=== PATIENT | female | born 1995 | race Caucasian/White ===

== ENCOUNTER 2019-02-12 10:49 | Outpatient (CLI) | payer MEDICAID ==
[~2019-02-12] VITALS: Ht 175.3 cm; Wt 111.1 kg
[~2019-02-12 10:49] MED LIST: AMOXICILLIN; CYCL10TA9 PO; GUAI10SY4 PO; HYDR-757 PO; HYDR1TAB75 PO; IBP800T PO; METR500T PO; NAPR-243 PO; NAPR250T PO; OXYC-12 PO; Omeprazole PO; PRCD5U PO; PRED20TA PO; PREN1TAB39 PO; Promethazine PO; SULF-222 PO; TRAM50TA2 PO; Zofran ODT SL
[2019-02-12] MEDS ORDERED: PANT40TA2 PO (11:52)
== END 2019-02-12 11:58 | disposition home or self-care (01) ==
LOC: PREOP 10:49
PROVIDERS: ATTEND Surgery
DX: Z01.818 Encounter for other preprocedural examination (principal)

== ENCOUNTER 2019-02-13 10:55 | Day surgery (SDC) | payer MEDICAID ==
[~2019-02-13] VITALS: Ht 175.3 cm; Wt 111.1 kg
[~2019-02-13 10:55] MED LIST changes: +PANT40TA2 PO
--- OUTSIDE RECORDS SUMMARY | 2019-02-13 10:59 | XMS REPORT ---
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
--- OUTSIDE RECORDS SUMMARY | 2019-02-13 10:59 | XMS REPORT | Continuity of Care Document ---
Author Organization Unknown Address Unknown Allergies Active Description Code Type Severity Reaction Onset Reported/Identified Relationship to Patient Clinical Status Yes CODEINE SULFATE UNKNOWN UNKNOWN Yes codeine [id number] Drug Allergy Mild HYPERSENSITIVE, 05/05/2011 Medications There is no data. Problems Date Dx Coded Attending Type Code Diagnosis Diagnosed By 05/23/2010 Ot 465.9 05/23/2010 Ot 786.2 08/07/2010 Ot 478.19 08/07/2010 Ot 786.2 04/07/2011 ARJUN PADILLA, RANDELL V65.11 NEW MOMMY VISIT 05/06/2011 Ot 287.5 THROMBOCYTOPENIA NOS 05/06/2011 Ot 309.0 ADJUSTMENT DISORDER WITH DEPRESSED MOOD 05/06/2011 Ot 648.41 MENTAL DISORDER- DELIVER 05/06/2011 Ot 649.31 COAGULATION DEFECTS COMP PREG/CHILDBIRTH 05/06/2011 Ot 663.31 CORD ENTANGLE NEC-DELIV 05/06/2011 Ot 664.11 DEL W 2 DEG LACERAT- DEL 05/06/2011 Ot V06.4 OYN-MIVJDD-GEODL-RUBELLA 05/06/2011 Ot V27.0 DELIVER-SINGLE LIVEBORN 02/10/2012 Ot 780.52 INSOMNIA, UNSPECIFIED 02/10/2012 Ot 780.59 SLEEP DISTURBANCES NEC 02/10/2012 Ot 784.0 HEADACHE 11/18/2013 ALETHEA SNOW Ot 845.10 SPRAIN OF FOOT NOS 11/18/2013 ALETHEA SNOW Ot 959.7 LOWER LEG INJURY NOS 11/18/2013 ALETHEA SNOW Ot E000.8 OTHER EXTERNAL CAUSE STATUS 11/18/2013 ALETHEA SNOW Ot E001.0 ACTIVITIES INVOLVING WALKING, MARCHING A 11/18/2013 ALETHEA SNOW Ot E849.[address] NEC 11/18/2013 ALETHEA SNOW Ot E883.9 FALL INTO OTHER HOLE 09/21/2014 ALETHEA SNOW Ot 724.2 LUMBAGO 09/21/2014 SONAM MANISHALETHEA Ot 847.0 SPRAIN OF NECK 09/21/2014 SONAM HAMMONDALETHEA Ot E000.8 OTHER EXTERNAL CAUSE STATUS 09/21/2014 ALETHEA SNOW Ot E849.0 ACCIDENT IN HOME 09/21/2014 SONAM HAMMONDALETHEA Ot E927.0 OVEREXERTION FROM SUDDEN STRENUOUS MOVEM 2015 YUKI MARTINEZ SHIV S Ot 780.79 2015 MANISHGITA MARTINEZ SHIV S Ot 787.02 2015 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 Ot 682.5 CELLULITIS OF BUTTOCK 2015 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 Ot 782.2 LOCAL SUPRFICIAL SWELLNG 2015 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 Ot V12.04 PERSONAL HIST OF METHICILLIN RESISTANT S 2015 MANISHGITA DO SHIV S Ot 780.79 2015 YUKI MARTINEZ SHIV S Ot 787.02 01/09/2015 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 Ot 041.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 01/09/2015 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 Ot 682.5 CELLULITIS OF BUTTOCK 03/24/2015 YUKI MARTINEZ SHIV S Ot 780.79 03/24/2015 YUKI MARTINEZ SHIV S Ot 787.02 03/25/2015 YULIANA PADILLA, GABE Monroy Ot 787.01 NAUSEA WITH VOMITING 03/25/2015 YULIANA PADILLA, GABE Monroy Ot 789.09 ABDOMINAL PAIN, OTHER SPECIFIED SITE 03/25/2015 YUKI MARTINEZ SHIV S Ot 780.79 03/25/2015 YUKI MARTINEZ SHIV S Ot 787.02 06/27/2015 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 Ot M54.6 PAIN IN THORACIC SPINE 03/28/2016 YUKI MARTINEZ SHIV S Ot 780.79 OTH MALAISE FATIGUE 03/28/2016 YUKI MARTINEZ SHIV S Ot 787.02 NAUSEA ALONE 03/29/2016 ISAIAH MARS DO Ot R10.13 EPIGASTRIC PAIN 03/30/2016 ISAIAH MARS DO Ot R10.13 EPIGASTRIC PAIN 04/04/2016 W 787.99 OTHER SYMPTOMS INVOLVING DIGESTIVE SYSTEM 04/04/2016 W K21.9 GASTRO-ESOPHAGEAL REFLUX DISEASE WITHOUT ESOPHAGITIS 04/12/2016 ISAIAH MARS DO Ot R10.13 EPIGASTRIC PAIN Procedures Code Description Performed By Performed On 75.69 05/05/2011 Results Test Result Range BMP - 01/01/17 15:14 Anion Gap 13 6-14 BUN 9 mg/dL 5-25 Calcium 9.5 mg/dL 8.3-10.4 Chloride 107 mmol/L 95-114 CO2 27 mEq/L 22-33 Creat 0.90 mg/dL 0.50-1.50 eGFR 78 mL/min/1.73m2 >59 Glucose 91 mg/dL 70-110 Osmo 294 280-295 Potassium 3.5 mmol/L 3.5-5.3 Sodium 143 mmol/L 134-148 Comprehensive Metabolic Panel - 01/02/19 09:34 Albumin 4.5 g/dL 3.6-5.1 ALP 93 U/L 35-130 ALT 47 U/L 6-45 Anion Gap 12 6-14 AST 28 U/L 2-40 BUN 14 mg/dL 5-25 Calcium 9.7 mg/dL 8.3-10.4 Chloride 108 mmol/L 95-114 CO2 22 mEq/L 22-33 Creat 0.88 mg/dL 0.50-1.50 eGFR 78 mL/min/1.73m2 >59 Globulin 2.9 g/dL 2.3-3.5 Glucose 86 mg/dL 70-110 Osmo 285 280-295 Potassium 4.4 mmol/L 3.5-5.3 Sodium 138 mmol/L 134-148 TBil 0.6 mg/dL 0.2-1.2 TP 7.4 g/dL 6.0-8.3 Amylase - 01/02/19 09:34 Amylase 32 U/L 20-100 Lipase - 01/02/19 09:34 Lipase 9 U/L 7-59 Encounters ACCT No. Visit Date/Time Discharge Status Pt. Type Provider Facility Loc./Unit Complaint [id number] 01/02/2019 09:29:00 01/02/2019 23:59:00 DIS Outpatient Shiv Rowland [id number] 01/01/2017 15:11:00 01/01/2017 23:59:00 DIS Outpatient Shiv Rowland [id number] 04/04/2016 10:13:00 Document Registration [id number] 04/07/2011 13:39:00 04/07/2011 23:59:59 CLS Outpatient ARJUN PADILLA, RANDELL [id number] 02/12/2019 10:49:00 02/12/2019 11:58:00 DIS Outpatient ALMA LIN MD [facility] PREOP EGD [id number] 03/28/2016 09:45:00 03/28/2016 23:59:59 CLS Outpatient DEMAR MARS DOTIE [facility] CARD EPIGASTRIC PAIN,POSTPRANDIAL PAIN [id number] 06/27/2015 15:34:00 06/27/2015 17:01:00 DIS Emergency 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 [facility] ER [id number] 03/24/2015 20:35:00 03/25/2015 00:25:00 DIS Emergency YULIANA PADILLA, GABE Monroy [facility] ER [id number] 01/09/2015 18:18:00 01/09/2015 18:39:00 DIS Emergency 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 [facility] ER [id number] 2015 10:25:00 2015 11:24:00 DIS Emergency 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 [facility] ER [id number] 12/25/2014 08:00:00 12/25/2014 23:59:59 CLS Preadmit PAONI DO, SHIV S [facility] CARD [id number] 12/22/2014 11:43:00 12/22/2014 23:59:59 CLS Outpatient PAONI DO, SHIV S [facility] CARD [id number] 09/21/2014 13:26:00 09/21/2014 14:32:00 DIS Emergency ALETHEA SNOW [facility] ER [id number] 11/18/2013 21:43:00 11/18/2013 22:32:00 DIS Emergency ALETHEA SNOW [facility] ER [id number] 02/13/2019 11:30:00 PEN Preadmit ALMA LIN MD [facility] ENDO ABD PAIN/N V/REFLUX [id number] 02/09/2012 21:45:00 Document Registration [id number] 05/04/2011 18:00:00 Document Registration [id number] 08/06/2010 23:16:00 Document Registration [id number] 05/23/2010 17:30:00 Document Registration
[2019-02-13 11:10] VITALS: BP 124/88
[2019-02-13] MEDS ORDERED: NS IV 500 ML 500 ML IV PRN (11:17)
[2019-02-13] MEDS ORDERED: fentaNYL INJECTION 100 MCG/2 ML AMP IVP ONE (11:30)
[2019-02-13] MEDS ORDERED: MIDAZOLAM 2 MG/2 ML (VERSED) VIAL IVP ONE (11:30)
[2019-02-13] MEDS ORDERED: LIDOCAINE JELLY 2% 6 ML SYRINGE MM PRN (11:30)
[2019-02-13] MEDS ORDERED: NS IV 500 ML 500 ML ONE (11:30)
[2019-02-13] MEDS ORDERED: HURRICAINE EXT TUBE (BENZOCAINE) XX PRN (11:30)
--- NOTE | 2019-02-13 12:33 | Progress Note-Pre Operative ---
Pre-Operative Progress Note H&P Reviewed The H&P was reviewed, patient examined and no changes noted. Date Seen by Provider: Feb 13, 2019 Time Seen by Provider: 12:30 Date H&P Reviewed: Feb 13, 2019 Time H&P Reviewed: 12:30 Pre-Operative Diagnosis: Epigastric pain, nausea, vomiting. YOSHI WOLFF APRN Feb 13, 2019 12:33
--- NOTE | 2019-02-13 12:34 | Conscious Sedation/ASA ---
Conscious Sedation Pre-Proced Time 12:30 ASA Score 2 For ASA 3 and 4: Consider anesthesia and medical clearance. Also, for patients with a history of failed moderate sedation consider anesthesia. Airway Lungs Heart ASA score ASA 1: a normal healthy patient ASA 2: a patient with a mild systemic disease (mid diabetes, controlled hypertension, obesity ASA 3: a patient with a severe systemic disease that limits activity (angina, COPD, prior Myocardial infarction) ASA 4: a patient with an incapacitating disease that is a constant threat to life (CHF, renal failure) ASA 5: a moribund patient not expected to survive 24 hrs. (ruptured aneurysm) ASA 6: a declared brain- patient whose organs are being harvested. For emergent operations, add the letter E after the classification Mallampati Classification Grade 2 Sedation Plan Analgesia, Amnesia, Plan communicated to team members, Discussed options with patient/fam, Discussed risks with patient/fam The patient is an appropriate candidate to undergo the planned procedure, sedation, and anesthesia. The patient immediately re-assessed prior to indication. YOSHI WOLFF APRN Feb 13, 2019 12:34
[2019-02-13] MEDS ORDERED: LIDOCAINE JELLY 2% 6 ML SYRINGE ONE (13:23)
[2019-02-13] MEDS ORDERED: fentaNYL INJECTION 100 MCG/2 ML AMP ONE (13:23)
[2019-02-13] MEDS ORDERED: HURRICAINE EXT TUBE (BENZOCAINE) ONE (13:24)
[2019-02-13] MEDS ORDERED: MIDAZOLAM 2 MG/2 ML (VERSED) VIAL ONE ×6 (13:24→14:00)
--- NOTE | 2019-02-13 13:55 | Discharge Inst-Surgical ---
D/C Lap Instructions-DELIA Follow Up Activity as tolerated High Fiber Diet 25g or more per day Avoid Alcohol, Caffeine, Spicy [place] and Acid foods. Drink 64 fluid oz or more of fluids per day. Symptoms to Report: Fever over 101 degree F, Nausea/Vomiting If any problems/questions: Contact your physician or go to Emergency Room ALMA LIN MD Feb 13, 2019 13:55
[2019-02-13] MEDS ORDERED: ONDANSETRON 4 MG/2 ML (SDV) Z0FRAN IVP PRN (14:00)
[2019-02-13] MEDS ORDERED: HYDROcodone/APAP 5 MG/325 MG (LORTAB) TAB PO PRN (14:00)
[2019-02-13] MEDS ORDERED: ACETAMINOPHEN 325 MG TABLET PO PRN (14:00)
[2019-02-13] MEDS ORDERED: morphine INJ 10 MG/ML 1ML (SYR OR VIAL) IVP PRN ×2 (14:00)
[2019-02-13 14:45] VITALS: BP 114/70
[2019-02-13 15:05] VITALS: BP 117/77
--- NOTE | 2019-02-13 15:38 | OPERATIVE REPORT ---
DATE OF SERVICE: 02/13/2019 ATTENDING PRIMARY CARE PHYSICIAN: Dr. Shiv Rowland. PREOPERATIVE DIAGNOSES: Nausea, vomiting, reflux. POSTOPERATIVE DIAGNOSES: Reflux esophagitis stage II, small to moderate size hiatal hernia approximately 2.5 cm in size, mild gastritis. No distal obstructions. PROCEDURE: EGD with biopsy. SURGEON: Alma Lin MD ANESTHESIA: Conscious sedation. ESTIMATED BLOOD LOSS: Minimal. FINDINGS: Reflux esophagitis stage II, small to moderate size hiatal hernia approximately 2.5 cm in size, mild gastritis. No distal obstructions. DISPOSITION: The patient tolerated the procedure well. INDICATIONS: The patient is a 24-year-old female with a two to three month history of reflux type of symptoms as well as nausea and vomiting. She did undergo a laparoscopic cholecystectomy and EGD in 2016 and remembers that she felt better; however, has redeveloped episodes of reflux and nausea and vomiting. She was started on Protonix recently and is unsure if this has helped her symptoms. She also reports that she does have some dysphagia at times and after taking in a food bolus, she may feel substernal pressure sensation for some time and then this would reduce on its own. She does not report any hematemesis nor coffee ground emesis. DESCRIPTION OF PROCEDURE: The patient was brought to the endoscopy suite, laid in the left lateral decubitus position with head slightly elevated. After adequate IV pain and sedative medications and conscious sedation anesthesia, the mouthpiece was applied. Endoscope was placed in the mouth, visualizing the pharynx and hypopharyngeal region. Vocal cords, epiglottis and vallecula identified and appeared to be normal. The endoscope was then gently intubated the esophageal opening, esophagus insufflated. The endoscope was then advanced to the first, second and third portions of the esophagus at the level of the GE junction, a reflux esophagitis stage II identified. There were no ulcers or strictures identified in this region. A biopsy was taken using forceps with visualization of good hemostasis. The endoscope was then advanced into the stomach, endoscope retroflexed, visualizing a small to moderate size hiatal hernia approximately 2.5 cm in size. There was also clinical reflux with continuous regurgitation of air. There was a mild gastritis noted. There were no formal ulcerations, polyps, nor any neoplasms. A biopsy was taken of the antrum to rule out H. pylori with visualization of good hemostasis. The endoscope was then advanced to the pylorus and the first and second portion of the duodenum, which appeared normal with no distal obstructions. The endoscope was then slowly withdrawn while taking a second look and suctioning of residual air with no additional findings. The patient tolerated the procedure well. We will recommend the necessary lifestyle and diet accommodation including any form of regularly scheduled diet and exercise regimen to promote weight loss and maintenance. We will also recommend avoidance of spicy, greasy and acidic foods as well as caffeinated beverages. We will await the biopsy results for the possibility of H. pylori. It appears that the majority of symptoms appear to be secondary to the hiatal hernia. If she continues to be symptomatic, she may benefit from a hiatal hernia repair. However, before proceeding with this, we would get adequate test including esophageal manometry to rule out the esophageal dysmotility disorder. If this is normal, then she may benefit from a hiatal hernia repair as well as an antireflux procedure. Job ID: [id number] DocumentID: [id number] Dictated Date: 02/13/2019 14:26:32 Biology Instructor Date: 02/13/2019 15:37:07 Dictated By: ALMA LIN MD
[2019-02-13 15:40] VITALS: BP 124/71
== END 2019-02-13 14:45 | disposition home or self-care (01) ==
LOC: ENDO 10:55
PROVIDERS: ATTEND Surgery
DX: K21.0 Gastro-esophageal reflux disease with esophagitis (principal); K44.9 Diaphragmatic hernia without obstruction or gangrene; K29.70 Gastritis, unspecified, without bleeding
CPT/HCPCS: 84703

== ENCOUNTER 2019-02-19 18:22 | Emergency (ER) | payer MEDICAID ==
[~2019-02-19] VITALS: Ht 175.3 cm; Wt 111.1 kg
--- OUTSIDE RECORDS SUMMARY | 2019-02-19 18:27 | XMS REPORT | Continuity of Care Document ---
Author Organization Unknown Address Unknown Allergies Active Description Code Type Severity Reaction Onset Reported/Identified Relationship to Patient Clinical Status Yes CODEINE SULFATE UNKNOWN UNKNOWN Yes codeine [id number] Drug Allergy Mild HYPERSENSITIVE, 02/13/2019 Medications There is no data. 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 Ot 682.5 CELLULITIS OF BUTTOCK 2015 GIGI MILES MIX HOUSE OPERATOR Ot 782.2 LOCAL SUPRFICIAL SWELLNG 2015 GIGI MILES MIX HOUSE OPERATOR Ot V12.04 PERSONAL HIST OF METHICILLIN RESISTANT S 2015 MANISHGITA DO SHIV S Ot 780.79 2015 YUKI MARTINEZ SHIV S Ot 787.02 01/09/2015 GIGI MILES MIX HOUSE OPERATOR Ot 041.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 01/09/2015 GIGI MILES MIX HOUSE OPERATOR Ot 682.5 CELLULITIS OF BUTTOCK 03/24/2015 YUKI MARTINEZ SHIV S Ot 780.79 03/24/2015 YUKI MARTINEZ SHIV S Ot 787.02 03/25/2015 YULIANA PADILLA, GABE Monroy Ot 787.01 NAUSEA WITH VOMITING 03/25/2015 YULIANA PADILLA, GABE Monroy Ot 789.09 ABDOMINAL PAIN, OTHER SPECIFIED SITE 03/25/2015 YUKI MARTINEZ SHIV S Ot 780.79 03/25/2015 YUKI MARTINEZ SHIV S Ot 787.02 06/27/2015 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 MIX HOUSE OPERATOR Ot M54.6 PAIN IN THORACIC SPINE 03/28/2016 [...] ISAIAH MARS DO Ot R10.13 EPIGASTRIC PAIN 02/12/2019 ALMA LIN MD, Ot Z01.818 ENCOUNTER FOR OTHER PREPROCEDURAL EXAMIN 02/13/2019 YUKI SHIV Camara Ot 780.79 OTH MALAISE FATIGUE 02/13/2019 SHIV ROWLAND DO Ot 787.02 NAUSEA ALONE 02/13/2019 ISAIAH MARS DO Ot R10.13 EPIGASTRIC PAIN 02/15/2019 ALMA LIN MD, Ot K21.0 GASTRO-ESOPHAGEAL REFLUX DISEASE WITH ES 02/15/2019 ALMA LIN MD, Ot K29.70 GASTRITIS, UNSPECIFIED, WITHOUT BLEEDING 02/15/2019 ALMA LIN MD, Ot K44.9 DIAPHRAGMATIC HERNIA WITHOUT OBSTRUCTION Procedures Code Description Performed By Performed On 75.69 05/05/2011 Results Test Result Range [facility] - 01/01/17 15:14 Anion Gap 13 6-14 [...] Status Pt. Type Provider Facility Loc./Unit Complaint [id number] 01/02/2019 09:29:00 01/02/2019 23:59:00 DIS Outpatient Shiv Rowland [id number] 01/01/2017 15:11:00 01/01/2017 23:59:00 DIS Outpatient Shiv Rowland [id number] 04/04/2016 10:13:00 Document Registration [id number] 04/07/2011 13:39:00 04/07/2011 23:59:59 CLS Outpatient ARJUN PADILLA, RANDELL [id number] 02/13/2019 10:55:00 02/13/2019 14:45:00 DIS Outpatient ALMA LIN MD [facility] ENDO ABD PAIN/N V/REFLUX [id number] 02/12/2019 10:49:00 02/12/2019 11:58:00 DIS Outpatient ALMA LIN MD [facility] PREOP EGD [id number] 03/28/2016 09:45:00 03/28/2016 23:59:59 CLS Outpatient ISAIAH MARS DO [facility] CARD EPIGASTRIC PAIN,POSTPRANDIAL PAIN [id number] 06/27/2015 15:34:00 06/27/2015 17:01:00 DIS Emergency GIGI MILES APRN [facility] ER BACK PAIN [id number] 03/24/2015 20:35:00 03/25/2015 00:25:00 DIS Emergency YULIANA PADILLA, GABE Monroy [facility] ER VOMITING,POSS FEVER [id number] 01/09/2015 18:18:00 01/09/2015 18:39:00 DIS Emergency GIGI MILES APRN [facility] ER WOUND CHECK [id number] 2015 10:25:00 2015 11:24:00 DIS Emergency JDGIGI APRN [facility] ER POSS SPIDER BITE/ABSCESS [id number] 12/25/2014 08:00:00 12/25/2014 23:59:59 CLS Preadmit YUKI SHIV Camara [facility] CARD SEE ORDER [id number] 12/22/2014 11:43:00 12/22/2014 23:59:59 CLS Outpatient SHIV ROWLAND DO [facility] CARD NAUSEA FATIGUE [id number] 09/21/2014 13:26:00 09/21/2014 14:32:00 DIS Emergency ALETHEA SNOW [facility] ER BACK PAIN [id number] 11/18/2013 21:43:00 11/18/2013 22:32:00 DIS Emergency ALETHEA SNOW [facility] ER R FOOT PAIN [id number] 02/09/2012 21:45:00 Document Registration [id number] 05/04/2011 18:00:00 Document Registration [id number] 08/06/2010 23:16:00 Document Registration [id number] 05/23/2010 17:30:00 Document Registration
--- NOTE | 2019-02-19 18:42 | ED Upper Extremity ---
General Chief Complaint: Upper Extremity Stated Complaint: R ARM BUMPS Source: patient, family (mom) Exam Limitations: no limitations History of Present Illness Date Seen by Provider: Feb 19, 2019 Time Seen by Provider: 18:18 Initial Comments The patient presents to ER by private conveyance with mom and chief complaint she has some bumps on her right arm in the antecubital fossa. She does these in the last day and she says they don't itch but they do have a little burning pain to them. She notes that she's been worked up by Dr. Parmar with endoscopy and has recently started clarithromycin and Flagyl as well as pantoprazole for presumably H. pylori disease. She was wondering if that might have anything to do with her antibiotics. She had a endoscopy 2 days ago and they accessed her right antecubital fossa for IV and did place take there. The tape was in the exact distribution of the small row of bumps on her right arm. She's also noticed for the last couple weeks she's had some fleeting small little dark purplish brown non-purpuric dots in small clusters on her back as well as upper extremity is. Today she only has them on her right upper extremity. She says they do not itch or burn. There is no redness or drainage or weeping. She's had no unexpected weight gain or weight loss. She is not having any appetite changes or other pain or discomfort. She had lab work done 2 weeks ago which was normal. She is known to Dr. Rowland. For the last couple days she's also noticed some nonpainful ulceration in her right lower gums and was afraid maybe it was gingivitis. There is no white plaques that she's noted. She is fastidious about brushing her teeth and flossing. Allergies and Home Medications Allergies Coded Allergies: codeine (Verified Adverse Reaction, Mild, HYPERSENSITIVE, HYPERACTIVITY, 02/13/19) PATIENT DENIES ALLERGY TO CODEINE Home Medications Pantoprazole Sodium 40 Mg Tablet., 40 MG PO HS, (Reported) Patient Home Medication List Home Medication List Reviewed: Yes Review of Systems Constitutional: No chills, No diaphoresis EENTM: No ear discharge, No ear pain Respiratory: No short of breath Cardiovascular: No chest pain, No edema Gastrointestinal: No abdominal pain, No constipation, No diarrhea Genitourinary: No discharge, No dysuria Past Fvtqhti-Xyngeg-Nwzihv Hx Patient Social History Alcohol Use: Denies Use Recreational Drug Use: No Smoking Status: Never a Smoker Recent Foreign Travel: No Contact w/Someone Who Travel: No Recent Hopitalizations: No Seasonal Allergies Seasonal Allergies: No Past Medical History Surgeries: Yes Appendectomy, Gallbladder Respiratory: No Cardiac: No Neurological: Yes Headaches /Migraines 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 0.0oz. 111.961486hc; 36.2 BMI Method:Estimated General Appearance: WD/WN, no apparent distress HEENT: PERRL/EOMI, normal ENT inspection, other (gums on the right lower mandible have a white ulceration without any loose plaques) Neck: non-tender, full range of motion Cardiovascular: normal peripheral pulses, regular rate, rhythm Respiratory: no respiratory distress, no accessory muscle use Elbow/Forearm: non-tender, no evidence of injury, Right (small erythematous papules without discharge or erythematous base. Consistent with contact dermatitis.) Wrist: Yes normal inspection, Yes non-tender, Yes no evidence of injury, Yes normal ROM Neurologic/Tendon: normal sensation, normal motor functions, normal tendon functions Neurologic/Psychiatric: no motor/sensory deficits, alert, oriented x 3 Skin: other (on her right bicep anteriorly there are some small less than 1 mm cluster of the faint purplish brown macules sparsely punctated over a patch of about 2 x 3 cm. Non-blanchable) Progress/Results/Core Measures Progress Progress Note : Time: 18:41 Progress Note The faint macules are consistent with a possible minor trauma purpura. We have offered to do some labs to rule out any kind of bleeding disorder or other concern versus letting her follow-up and do these with her primary care doctor and she has declined to do them today. Her contact dermatitis we've encouraged her to use some lotion keep the skin moisturized and it will pass on its own. She may use hydrocortisone cream if she wishes. She does not have any constitutional symptoms of concern to go with these faint minor patches which seem to resolve on their own over a day or 2. She does not seem to be having a oral candidiasis so we'll just put her on some Magic mouthwash and have her reevaluated by primary care or dentist. Departure Impression Primary Impression: Localized macular rash Additional Impressions: Contact dermatitis Qualified Codes: L23.1 - Allergic contact dermatitis due to adhesives Gingivitis, acute Disposition: 01 HOME, SELF-CARE Condition: Stable Departure-Patient Inst. Decision time for Depature: 18:48 Referrals: VANDANA ROWLAND DO (PCP/Family) Primary Care Physician Patient Instructions: Contact Dermatitis (DC), Gingivitis (DC) Add. Discharge Instructions: Keep the skin clean regular soap and water and you can use a gentle, hypoall ergenic lotions or if you choose [id number] hydrocortisone cream for your right elbow once or twice a day as necessary. It will resolve on its own. Use the Magic mouthwash 3 times a day 30 ML's, swish vigorously and spit. Follow-up with Dr. Rowland in the next 1-2 weeks for reevaluation. All discharge instructions reviewed with patient and/or family. Voiced understanding. Scripts Chlorhexidine Gluconate (Chlorhexidine Gluconate) 473 Ml Mouthwash 30 ML MM TID for 5 Days, #473 ML 0 Refills Prov: MARLI BUTTS 02/19/19 Copy Copies To 1: VANDANA ROWLAND TITUS J Feb 19, 2019 18:42
[2019-02-19] MEDS ORDERED: CHLO473M MM (18:51)
[2019-02-19 19:23] VITALS: BP 127/85
== END 2019-02-19 19:23 | disposition home or self-care (01) ==
LOC: EDUNIT# 18:22 → ER 18:23
DX: L25.9 Unspecified contact dermatitis, unspecified cause (principal); K05.00 Acute gingivitis, plaque induced; G43.909 Migraine, unspecified, not intractable, without status migrainosus; K21.9 Gastro-esophageal reflux disease without esophagitis; Z82.49 Family history of ischemic heart disease and other diseases of the circulatory system; Z90.49 Acquired absence of other specified parts of digestive tract; Z88.5 Allergy status to narcotic agent
CPT/HCPCS: 99282

== ENCOUNTER 2019-04-23 18:31 | Emergency (ER) | payer MEDICAID ==
[~2019-04-23] VITALS: Ht 175.3 cm; Wt 111.1 kg
[~2019-04-23 18:31] MED LIST changes: +CHLO473M MM
[2019-04-23] MEDS ORDERED: IBUPROFEN 800 MG (MOTRIN) TAB PO STA (18:42)
[2019-04-23] MEDS ORDERED: AUGMENTIN 875 MG TAB (AMOXICILLIN/CLAVULANATE) PO STA (19:45)
[2019-04-23] MEDS ORDERED: AMOX-358 PO (19:48)
--- NOTE | 2019-04-23 19:48 | ED EENT ---
History of Present Illness General Chief Complaint: Cough/Cold/Flu Symptoms Stated Complaint: SINUS PRESSURE Nursing Triage Note: SINUS PRESSURE AND RIGHT EAR PAIN STARTING LAST NIGHT. HAS NOT TAKEN ANY MEDS FOR RELIEF. History of Present Illness Date Seen by Provider: Apr 23, 2019 Time Seen by Provider: 19:10 Initial Comments 24-year-old female presents with right sided frontal and maxillary sinus tenderness. She states that she originally started symptoms and was having some purulent drainage however this is decreased over the last few days but she's had increased pressure and pain. She routinely gets 2-3 sinus infections each fall. She's never treated for allergies. In addition she is noted right ear pain. Timing/Duration: yesterday Location: facial (right sinuses) Prearrival Treatment: no prearrival treatment Associated Symptoms: facial pain/swelling, malaise, sinus infection Allergies and Home Medications Allergies Coded Allergies: codeine (Verified Adverse Reaction, Mild, HYPERSENSITIVE, HYPERACTIVITY, 02/13/19) PATIENT DENIES ALLERGY TO CODEINE Home Medications Amoxicillin/Potassium Clav 1 Each Tablet, 1 EACH PO BID Prescribed by: LEANN HUNTER on 04/23/191947 Patient Home Medication List Home Medication List Reviewed: Yes Review of Systems Review of Systems Constitutional: no symptoms reported, see HPI Ears: See HPI, Pain Nose: see HPI, congestion Respiratory: no symptoms reported, see HPI All Other Systems Reviewed Negative Unless Noted: Yes Past Cebjzpz-Vaymrf-Gcpewb Hx Past Med/Social Hx: Reviewed Nursing Past Med/Soc Hx Patient Social History Alcohol Use: Occasionally Uses Recreational Drug Use: No Smoking Status: Never a Smoker Recent Foreign Travel: No Contact w/Someone Who Travel: No Recent Infectious Disease Expo: No Recent Hopitalizations: No Seasonal Allergies Seasonal Allergies: No Past Medical History Surgeries: Yes Appendectomy, Gallbladder Respiratory: No Cardiac: No Neurological: Yes Headaches /Migraines 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 0.0oz. 111.685431gs; 36.2 BMI Method:Stated General Appearance: WD/WN, no apparent distress Eyes: bilateral eye normal inspection, bilateral eye PERRL, bilateral eye EOMI Ears: right ear TM dull, right ear other (cloudy effusion); left ear TM normal; bilateral ear auricle normal, bilateral ear canal normal Nose: normal inspection; No discharge Mouth/Throat: normal mouth inspection, pharynx normal; No dental tenderness; other (tenderness to palpation over the right maxillary and frontal sinuses) Neck: non-tender, full range of motion, supple, normal inspection, lymphadenopathy (R) Cardiovascular: normal peripheral pulses, regular rate, rhythm Respiratory: chest non-tender, lungs clear, normal breath sounds Gastrointestinal: normal bowel sounds, non tender, soft Neurologic/Psychiatric: no motor/sensory deficits, alert, normal mood/affect, oriented x 3 Skin: normal color, warm/dry Progress/Results/Core Measures Results/Orders My Orders Orders - LEANN HUNTER Ibuprofen Tablet (Motrin Tablet) (04/23/19 18:42) Amoxicillin/Clavulanate Tablet (Augmenti (04/23/19 19:45) Vital Signs/I&O 04/23/19 04/23/19 18:36 19:59 Temp 100.0 99.1 Pulse 97 97 Resp 16 16 B/P (MAP) 143/100 (114) 143/100 (114) Pulse Ox 99 99 O2 Delivery Room Air Blood Pressure Mean: 114 Departure Impression Primary Impression: Sinusitis Qualified Codes: J01.01 - Acute recurrent maxillary sinusitis Additional Impression: Right otitis media with effusion Disposition: HOME, SELF-CARE Condition: Improved Departure-Patient Inst. Decision time for Depature: 19:30 Referrals: VANDANA MIRZA DO (PCP/Family) Primary Care Physician Patient Instructions: Sinus Headache (DC), Sinusitis, Adult (DC) Add. Discharge Instructions: Take antibiotics as prescribed. Alternate between Tylenol 650 mg and ibuprofen 800 mg every 4 hours for pain or fever. Use an fmri-gkq-uyjqlos nasal spray such as Nasonex or Flonase, 2 sprays in each nare twice daily. Use Leena pot or irrigate sinus with syringe every 4-6 hours. Follow-up with your primary care provider if symptoms are not improving or worsen. Return to emergency department for new, urgent health care needs. All discharge instructions reviewed with patient and/or family. Voiced understanding. Scripts Amoxicillin/Potassium Clav (Augmentin 875-125 Tablet) 1 Each Tablet 1 EACH PO BID, #14 TAB 0 Refills Prov: LEANN HUNTER 04/23/19 LEANN HUNTER Apr 23, 2019 19:48
[2019-04-23 19:59] VITALS: BP 143/100
== END 2019-04-23 19:59 | disposition home or self-care (01) ==
LOC: EDUNIT# 18:31 → ER 18:32
DX: J32.9 Chronic sinusitis, unspecified (principal); H65.91 Unspecified nonsuppurative otitis media, right ear; G43.909 Migraine, unspecified, not intractable, without status migrainosus; K21.9 Gastro-esophageal reflux disease without esophagitis; Z88.5 Allergy status to narcotic agent; Z90.49 Acquired absence of other specified parts of digestive tract
CPT/HCPCS: 99283

== ENCOUNTER 2019-06-20 18:59 | Emergency (ER) | payer MEDICAID ==
[~2019-06-20] VITALS: Ht 175 cm; Wt 104.5 kg
[~2019-06-20 18:59] MED LIST changes: +AMOX-358 PO; -CHLO473M MM; +NFCHLORHGL MM
[2019-06-20] MEDS ORDERED: PANT40TA3 (19:09)
[2019-06-20] MEDS ORDERED: ESCI20TA45 (19:09)
[2019-06-20] MEDS ORDERED: LIDOCAINE 1% INJ 20 ML 20 ML VIAL INJ ONE (19:45)
[2019-06-20] MEDS ORDERED: RX-CLINDAMYCIN 150 MG (CLEOCIN) CAP PPK#4 PO STA (20:04)
[2019-06-20] MEDS ORDERED: HYDR-4226 PO (20:07)
[2019-06-20] MEDS ORDERED: CLIN300C11 PO (20:07)
--- NOTE | 2019-06-20 20:07 | ED Integumentary General ---
General Chief Complaint: Skin/Wound Problems Stated Complaint: LT UNDERARM SWELLING,REDNESS Nursing Triage Note: patient reports swelling under L arm, x 2 days. reports redness started today. attempted to excise it yesterday with minimal drainage. Source: patient Exam Limitations: no limitations History of Present Illness Date Seen by Provider: Jun 20, 2019 Time Seen by Provider: 20:05 Initial Comments To ER swelling to the left axilla getting worse for the past 3 days. Became more red around it today. No fevers or chills. Timing/Duration: just prior to arrival Severity: moderate Location: extremities (left axilla) Associated Symptoms: denies symptoms Allergies and Home Medications Allergies Coded Allergies: codeine (Verified Adverse Reaction, Mild, HYPERSENSITIVE, HYPERACTIVITY, 02/13/19) PATIENT DENIES ALLERGY TO CODEINE Patient Home Medication List Home Medication List Reviewed: Yes Review of Systems Review of Systems Constitutional: see HPI EENTM: see HPI Respiratory: no symptoms reported Cardiovascular: no symptoms reported Genitourinary: no symptoms reported Musculoskeletal: no symptoms reported Skin: see HPI Psychiatric/Neurological: No Symptoms Reported Endocrine: No Symptoms Reported Past Oeyjaag-Hcbodb-Qqkcis Hx Patient Social History Recent Foreign Travel: No Contact w/Someone Who Travel: No Recent Infectious Disease Expo: No Recent Hopitalizations: No Seasonal Allergies Seasonal Allergies: No Past Medical History Surgeries: Yes Appendectomy, Gallbladder Respiratory: No Cardiac: No Neurological: Yes Headaches /Migraines 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 Genitourinary: No Gastrointestinal: Yes (N&V) Gastroesophageal Reflux Musculoskeletal: No Endocrine: No HEENT: No Cancer: No Psychosocial: No Integumentary: No Blood Disorders: No Adverse Reaction/Blood Tranf: No Family Medical History Diabetes, Hypertension, Stroke Physical Exam Vital Signs Vital Signs - First Documented 06/20/19 19:05 Temp 36.7 Pulse 78 Resp 18 B/P (MAP) 127/91 (103) Pulse Ox 100 Capillary Refill : Less Than 3 Seconds General Appearance: WD/WN, no apparent distress HEENT: PERRL/EOMI, normal ENT inspection Neck: non-tender, full range of motion Respiratory: no respiratory distress, no accessory muscle use Gastrointestinal: normal bowel sounds Neurologic/Psychiatric: alert, normal mood/affect, oriented x 3 Skin: other (1 x 3 cm area of induration to the left axilla with about 4 cm to surrounding erythema) Skin Problem Character: abscess Procedures/Interventions I&D : Blade Size: 11 Progress/Results/Core Measures Results/Orders My Orders Orders - GIGI MILES APRN Lidocaine 1% Inj 20 Ml (Xylocaine 1% Inj (06/20/19 19:45) Wound Culture (06/20/19 19:55) Vital Signs/I&O 06/20/19 19:05 Temp 36.7 Pulse 78 Resp 18 B/P (MAP) 127/91 (103) Pulse Ox 100 Blood Pressure Mean: 103 POS Departure Impression Primary Impression: Abscess Disposition: HOME, SELF-CARE Condition: Stable Departure-Patient Inst. Decision time for Depature: 20:06 Referrals: VANDANA MIRZA DO (PCP/Family) Primary Care Physician Patient Instructions: Abscess Incision and Drainage Add. Discharge Instructions: 1. Take medication and antibiotics as directed 2. Return to ER for any concerns 3. All discharge instructions reviewed with patient and/or family. Voiced understanding. Scripts Hydrocodone/Acetaminophen ([place] 5-325 Tablet) 1 Each Tablet 1 TAB PO Q6H for Pain MDD 10 TABS for 7 Days, #10 TAB Prov: GIGI MILES APRN 06/20/19 Clindamycin HCl (Clindamycin HCl) 300 Mg Capsule 300 MG PO TID, #21 CAP Prov: GIGI MILES APRN 06/20/19 GIGI MILES APRN Jun 20, 2019 20:07 POS
[2019-06-20 20:14] VITALS: BP 127/91
[2019-06-20] MEDS ORDERED: HYDROcodone/APAP 5 MG/325 MG (LORTAB) TAB PO ONE (20:15)
--- NOTE | 2019-06-24 20:18 | NUR ---
PT CALLED AT THIS TIME FOR CX RESULTS OF LEFT AXILLA ABSCESS. MANISH ALDANA REVIEWED. PT INFORMED TO CONTINUE CLINDAMYCIN 300MG TID UNTIL COMPLETE AND F/U WITH PCP PER MANISH ALDANA.
--- OUTSIDE RECORDS SUMMARY | 2019-07-14 18:28 | XMS REPORT | Continuity of Care Document ---
Author Organization Unknown POS Address Unknown SP Phone Unavailable SP Allergies Active Description Code Type Severity POS Reaction Onset Reported/Identified POS to Patient Clinical Status POS Yes CODEINE SULFATE U NKNOWN SP UNKNOWN SP Yes codeine [id number] Drug Allergy Mild SP HYPERSENSITIVE, 02/13/2019 SP SP Medications There is no data. Problems Date Dx Coded Attending Type Code POS Diagnosed By POS 05/23/2010 Ot 465.9 SP 05/23/2010 Ot 786.2 SP 08/07/2010 Ot 478.19 SP 08/07/2010 Ot 786.2 SP 04/07/2011 ARJUN PADILLA, RANDELL V65. 11 SP MOMMY VISIT SP 05/06/2011 Ot 287.5 THRO MBOCYTOPENIA SP SP 05/06/2011 Ot 309.0 ADJU STMENT SP WITH DEPRESSED MOOD SP 05/06/2011 Ot 648.41 MEN SOTERO DISORDER- SP SP 05/06/2011 Ot 649.31 COA GULATION SP COMP PREG/CHILDBIRTH SP 05/06/2011 Ot 663.31 COR D ENTANGLE SPDELIV SP 05/06/2011 Ot 664.11 DEL W 2 DEG SPDEL SP 05/06/2011 Ot V06.4 SP SP 05/06/2011 Ot V27.0 DELI ETELVINA-SINGLE SP SP 02/10/2012 Ot 780.52 INS OMNIA, SP SP 02/10/2012 Ot 780.59 SLE EP SP NEC SP 02/10/2012 Ot 784.0 HEAD ACHE SP SP 11/18/2013 ALETHEA SNOW Ot 845.10 SP SPRAIN OF FOOT NOS SP 11/18/2013 ALETHEA SNOW Ot 959.7 SP LOWER LEG INJURY NOS SP 11/18/2013 ALETHEA SNOW Ot E000.8 SP OTHER EXTERNAL CAUSE STATUS SP 11/18/2013 ALETHEA SNOW Ot E001.0 SP ACTIVITIES INVOLVING WALKING, MARCHING A SP 11/18/2013 ALETHEA SNOW Ot E849.[address] NEC SP 11/18/2013 SONAM HAMMOND ALETHEA L Ot E883.9 SP FALL INTO OTHER HOLE SP 09/21/2014 SONAM HAMMOND ALETHEA L Ot 724.2 SP LUMBAGO SP 09/21/2014 ALETHEA SNOW Ot 847.0 SP SPRAIN OF NECK SP 09/21/2014 ALETHEA SNOW Ot E000.8 SP OTHER EXTERNAL CAUSE STATUS SP 09/21/2014 ALETHEA SNOW Ot E849.0 SP ACCIDENT IN HOME SP 09/21/2014 ALETHEA SNOW Ot E927.0 SP OVEREXERTION FROM SUDDEN STRENUOUS MOVEM SP 2015 SHIV ROWLAND DO Ot 780.79 SP SP 2015 PASHIV PELAYO DO Ot 787.02 SP SP 2015 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 Ot 682 .5 SP OF BUTTOCK SP 2015 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 Ot 782 .2 SP SUPRFICIAL SWELLNG SP 2015 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 Ot V12.04 SP PERSONAL HIST OF METHICILLIN RESISTANT S SP 2015 PAONI DOSHIV Ot 780.79 SP SP 2015 PASHIV PELAYO DO Ot 787.02 SP SP 01/09/2015 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 Ot 041.12 SP METHICILLIN RESISTANT STAPHYLOCOCCUS AUR SP 01/09/2015 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 Ot 682 .5 SP OF BUTTOCK SP 03/24/2015 PAGITA DOSHIV Ot 780.79 SP SP 03/24/2015 PAONI DOSHIV S Ot 787.02 SP SP 03/25/2015 YULIANA PADILLA, GABE Monroy Ot 787.01 SP NAUSEA WITH VOMITING SP 03/25/2015 YULIANA PADILLA, GABE Monroy Ot 789.09 SP ABDOMINAL PAIN, OTHER SPECIFIED SITE SP 03/25/2015 PASHIV PELAYO DO Ot 780.79 SP SP 03/25/2015 PASHIV PELAYO DO S Ot 787.02 SP SP 06/27/2015 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 Ot M54 .6 SP IN THORACIC SPINE SP 03/28/2016 PASHIV PELAYO DO Ot 780.79 SP MALAISE FATIGUE SP 03/28/2016 [facility] MART[facility] Ot 787.02 SP ALONE SP 03/29/2016 JERAD ISAIAH MARTINEZ Ot R10.13 SP EPIGASTRIC PAIN SP 03/30/2016 JERAD DOISAIAH Ot R10.13 SP EPIGASTRIC PAIN SP 04/04/2016 W 787.99 OTH ER SYMPTOMS SP DIGESTIVE SYSTEM SP 04/04/2016 W 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 SP 04/12/2016 JERAD DOISAIAH Ot R10.13 SP EPIGASTRIC PAIN SP 12/05/2017 W 465.9 ACUT E UPPER SP INFECTIONS OF UNSPECIFIED SITE SP 12/05/2017 W J06.9 ACUT E UPPER SP INFECTION, UNSPECIFIED SP 01/02/2019 W 787.0 NAUS EA AND VOMITING SP SP 01/02/2019 W R11.2 NAUS EA WITH SP UNSPECIFIED SP 02/12/2019 ALMA LIN MD Ot Z01.81 8 SP FOR OTHER PREPROCEDURAL EXAMIN SP 02/13/2019 YUKI MARTINEZ SHIV Camara Ot 780.79 SP MALAISE FATIGUE SP 02/13/2019 [facility] SHIV Camara Ot 787.02 SP ALONE SP 02/13/2019 JERAD ISAIAH MARTINEZ Ot R10.13 SP EPIGASTRIC PAIN SP 02/13/2019 ALMA LIN MD Ot K21.0 SPESOPHAGEAL REFLUX DISEASE WITH ES SP 02/13/2019 ALMA LIN MD Ot K29.70 SP UNSPECIFIED, WITHOUT BLEEDING SP 02/13/2019 ALMA ILN MD Ot K44.9 SP HERNIA WITHOUT OBSTRUCTION SP 02/15/2019 ALMA LIN MD Ot K21.0 SPESOPHAGEAL REFLUX DISEASE WITH ES SP 02/15/2019 ALMA LIN MD Ot K29.70 SP UNSPECIFIED, WITHOUT BLEEDING SP 02/15/2019 ALMA LIN MD Ot K44.9 SP HERNIA WITHOUT OBSTRUCTION SP 02/19/2019 YUKI SHIV Camara Ot 780.79 SP MALAISE FATIGUE SP 02/19/2019 YUKI SHIV Camara Ot 787.02 SP ALONE SP 02/19/2019 JERAD ISAIAH MARTINEZ Ot R10.13 SP EPIGASTRIC PAIN SP 02/19/2019 MARLI BUTTS MD Ot G43.909 SP MIGRAINE, UNSP, NOT INTRACTABLE, WITHOUT SP 02/19/2019 MARLI BUTTS MD Ot K05. 00 SP GINGIVITIS, PLAQUE INDUCED SP 02/19/2019 MARLI BUTTS MD Ot K21. 9 SPESOPHAGEAL REFLUX DISEASE WITHOUT SP 02/19/2019 MARLI BUTTS MD Ot L25. 9 SP CONTACT DERMATITIS, UNSPECIF SP 02/19/2019 MARLI BUTTS MD Ot R22. 31 SP SWELLING, MASS AND LUMP, RIGHT SP 02/19/2019 MARLI BUTTS MD Ot Z82. 49 SP HX OF ISCHEM HEART DIS AND OTH DI SP 02/19/2019 MARLI BUTTS MD Ot Z88. 5 SP STATUS TO NARCOTIC AGENT STATUS SP 02/19/2019 MARLI BUTTS MD Ot Z90. 49 SP ABSENCE OF OTHER SPECIFIED PART SP 02/19/2019 SHIV ROWLAND DO S Ot 780.79 SP MALAISE FATIGUE SP 02/19/2019 SHIV ROWLAND DO S Ot 787.02 SP ALONE SP 02/19/2019 [facility] ISAIAH MARTINEZ Ot R10.13 SP EPIGASTRIC PAIN SP 02/24/2019 MARLI BUTTS MD Ot G43.909 SP MIGRAINE, UNSP, NOT INTRACTABLE, WITHOUT SP 02/24/2019 MARLI BUTTS MD Ot K05. 00 SP GINGIVITIS, PLAQUE INDUCED SP 02/24/2019 MARLI BUTTS MD Ot K21. 9 SPESOPHAGEAL REFLUX DISEASE WITHOUT SP 02/24/2019 MARLI BUTTS MD Ot L25. 9 SP CONTACT DERMATITIS, UNSPECIF SP 02/24/2019 MARLI BUTTS MD Ot R22. 31 SP SWELLING, MASS AND LUMP, RIGHT SP 02/24/2019 MARLI BUTTS MD Ot Z82. 49 SP HX OF ISCHEM HEART DIS AND OTH DI SP 02/24/2019 MARLI BUTTS MD Ot Z88. 5 SP STATUS TO NARCOTIC AGENT STATUS SP 02/24/2019 MARLI BUTTS MD Ot Z90. 49 SP ABSENCE OF OTHER SPECIFIED PART SP 04/23/2019 LEANN HUNTER Ot G43.909 SP UNSP, NOT INTRACTABLE, WITHOUT SP 04/23/2019 DALE LEANN CAMPOS Ot H65.91 SP NONSUPPURATIVE OTITIS MEDIA, SP 04/23/2019 DALE, LEANN CAMPOS Ot H92.01 SP RIGHT EAR SP 04/23/2019 DALE LEANN CAMPOS Ot J32.9 SP SINUSITIS, UNSPECIFIED SP 04/23/2019 DALE, LEANN CAMPOS Ot K21.9 SPESOPHAGEAL REFLUX DISEASE WITHOUT SP 04/23/2019 DALE, LEANN CAMPOS Ot Z88.5 SP STATUS TO NARCOTIC AGENT STATUS SP 04/23/2019 DALE, LEANN CAMPOS Ot Z90.49 SP ABSENCE OF OTHER SPECIFIED PART SP 06/20/2019 SHIV ROWLAND DO Ot 780.79 SP MALAISE FATIGUE SP 06/20/2019 SHIV ROWLAND DO Ot 787.02 SP ALONE SP 06/20/2019 ISAIAH MARS DO Ot R10.13 SP EPIGASTRIC PAIN SP 06/24/2019 GIGI MILES APRN Ot G43.909 SP MIGRAINE, UNSP, NOT INTRACTABLE, WITHOUT SP 06/24/2019 GIGI MILES APRN Ot K21 .9 SPESOPHAGEAL REFLUX DISEASE WITHOUT SP 06/24/2019 GIGI MILES APRN Ot L02.412 SP CUTANEOUS ABSCESS OF LEFT AXILLA SP 06/24/2019 GIGI MILES APRN Ot Z82.49 SP FAMILY HX OF ISCHEM HEART DIS AND OTH DI SP 06/24/2019 GIGI MILES APRN Ot Z88 .5 SP STATUS TO NARCOTIC AGENT STATUS SP 06/24/2019 GIGI MILES APRN Ot Z90.49 SP ACQUIRED ABSENCE OF OTHER SPECIFIED PART SP Procedures Code Description Performed By Per formed On POS 75.69 SP 05/05/2011 SP Results Test Result Range POS BMP - 01/01/17 15:14 POS Anion Gap 13 6-14 SP BUN 9 mg/dL 5-25 SP Calcium 9.5 mg/dL 8.3-10.4 SP Chloride 107 mmol/L 95-114 SP CO2 27 mEq/L 22-33 SP Creat 0.90 mg/dL 0.50-1.50 SP eGFR 78 mL/min/1.73m2 >59 SP Glucose 91 mg/dL 70-110 SP Osmo 294 280-295 SP Potassium 3.5 mmol/L 3.5-5.3 SP Sodium 143 mmol/L 134-148 SP Comprehensive Metabolic Panel - 01/02/19 09:34 POS Albumin 4.5 g/dL 3.6-5.1 SP ALP 93 U/L 35-130 SP ALT 47 U/L 6-45 SP Anion Gap 12 6-14 SP AST 28 U/L 2-40 SP BUN 14 mg/dL 5-25 SP Calcium 9.7 mg/dL 8.3-10.4 SP Chloride 108 mmol/L 95-114 SP CO2 22 mEq/L 22-33 SP Creat 0.88 mg/dL 0.50-1.50 SP eGFR 78 mL/min/1.73m2 >59 SP Globulin 2.9 g/dL 2.3-3.5 SP Glucose 86 mg/dL 70-110 SP Osmo 285 280-295 SP Potassium 4.4 mmol/L 3.5-5.3 SP Sodium 138 mmol/L 134-148 SP TBil 0.6 mg/dL 0.2-1.2 SP TP 7.4 g/dL 6.0-8.3 SP Amylase - 01/02/19 09:34 POS Amylase 32 U/L 20-100 SP Lipase - 01/02/19 09:34 POS Lipase 9 U/L 7-59 SP LIPID PANEL - 05/07/19 09:34 POS CHOLESTEROL, TOTAL 167 mg/dL <200 SP HDL CHOLESTEROL 42 mg/dL >50 SP TRIGLYCERIDES 83 mg/dL <150 SP LDL-CHOLESTEROL 108 mg/dL (calc) NRG SP CHOL/HDLC RATIO 4.0 (calc) <5.0 SP NON HDL CHOLESTEROL 125 mg/dL (calc) <13 0 SP CMP - 05/07/19 09:34 POS GLUCOSE 82 mg/dL 65-99 SP UREA NITROGEN (BUN) 16 mg/dL 7-25 SP CREATININE 1.02 mg/dL 0.50-1.10 SP eGFR NON-AFR. CYPRIOT 76 mL/min/1.73m2 > OR=60 SP eGFR 89 mL/min/1.73m2 > OR=60 SP BUN/CREATININE RATIO NOT APPLICABLE (calc) 6-22 SP SODIUM 140 mmol/L 135-146 SP POTASSIUM 4.5 mmol/L 3.5-5.3 SP CHLORIDE 107 mmol/L 98-110 SP CARBON DIOXIDE 24 mmol/L 20-32 SP CALCIUM 9.7 mg/dL 8.6-10.2 SP PROTEIN, TOTAL 7.5 g/dL 6.1-8.1 SP ALBUMIN 4.5 g/dL 3.6-5.1 SP GLOBULIN 3.0 g/dL (calc) 1.9-3.7 SP ALBUMIN/GLOBULIN RATIO 1.5 (calc) 1.0-2. 5 SP BILIRUBIN, TOTAL 0.5 mg/dL 0.2-1.2 SP ALKALINE PHOSPHATASE 83 U/L 33-115 SP AST 17 U/L 10-30 SP ALT 26 U/L 6-29 SP CBC - 05/07/19 09:34 POS WHITE BLOOD CELL COUNT 10.8 Thousand/uL 3.8-10.8 SP RED BLOOD CELL COUNT 5.34 Million/uL 3.8 0-5.10 SP HEMOGLOBIN 15.5 g/dL 11.7-15.5 SP HEMATOCRIT 49.2 % 35.0-45.0 SP MCV 92.1 fL 80.0-100.0 SP MCH 29.0 pg 27.0-33.0 SP MCHC 31.5 g/dL 32.0-36.0 SP RDW 12.1 % 11.0-15.0 SP PLATELET COUNT 195 Thousand/uL 140-400 SP MPV 12.8 fL 7.5-12.5 SP ABSOLUTE NEUTROPHILS 7538 cells/uL 1500- 7800 SP ABSOLUTE LYMPHOCYTES 2452 cells/uL 850-3 900 SP ABSOLUTE MONOCYTES 486 cells/uL 200-950 SP ABSOLUTE EOSINOPHILS 259 cells/uL 15-500 SP ABSOLUTE BASOPHILS 65 cells/uL 0-200 SP NEUTROPHILS 69.8 % NRG SP LYMPHOCYTES 22.7 % NRG SP MONOCYTES 4.5 % NRG SP EOSINOPHILS 2.4 % NRG SP BASOPHILS 0.6 % NRG SP THYROID ANALYZER - 05/07/19 09:34 POS TSH 1.86 mIU/L NRG SP VITAMIN D, 25-H - 05/07/19 09:34 POS VITAMIN D,25-OH,TOTAL,IA 31 ng/mL 30-10 0 SP Gram stain microscopy - 06/20/19 20:03 POS Gram stain microscopy No bacteria seen NRG SP Bacteria identification in wound by cult ure - 06/20/19 20:03 POS Bacteria identification in wound by culture [id number] NRG SP FREE TEXT EXTERNAL NO SUSCEPTIBILITIES SET UP NRG SP QUANTITY OF GROWTH SMALL AMOUNT NRG SP Encounters ACCT No. Visit Date/Time Discharge Status POS Pt. Type Provider Facility Loc./Un it POS Complaint POS [id number] 04/09/2019 08:56:00 04/09/2019 23:59: 00 DIS SP Outpatient Shiv Rowland SP [id number] 01/02/2019 09:29:00 01/02/2019 23:59: 00 DIS SP Outpatient Shiv Rowland SP [id number] 01/01/2017 15:11:00 01/01/2017 23:59: 00 DIS SP Outpatient Shiv Rowland SP [id number] 01/02/2019 08:42:00 Document SP SP [id number] 12/05/2017 13:04:00 Document SP SP [id number] 04/04/2016 10:13:00 Document SP SP [id number] 05/07/2019 09:00:00 Document SPRegistration SP [id number] 04/07/2011 13:39:00 04/07/2011 23:59: 59 CLS SP Outpatient RANDELL DÍAZ MD SP SP [id number] 06/20/2019 19:01:00 20:14:00 SP DIS Outpatient GIGI MILES APRN [facility] [address] ER LT UNDERARM SWELLING, REDNESS SP [id number] 04/23/2019 18:32:00 19:59:00 SP DIS Emergency LEANN HUNTER 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 [facility] ER SINUS PRESSURE SP [id number] 02/19/2019 18:23:00 19:23:00 SP DIS Emergency MARLI BUTTS MD [facility] ER R ARM BUMPS SP [id number] 02/13/2019 10:55:00 14:45:00 SP DIS Outpatient ALMA LIN MD [facility] ENDO ABD PAIN/N V/REFLUX SP [id number] 02/12/2019 10:49:00 11:58:00 SP DIS Outpatient ALMA LIN MD [facility] PREOP EGD SP [id number] 03/28/2016 09:45:00 016 23:59:59 SP CLS Outpatient ISAIAH MARS DO [facility] CARD EPIGASTRIC PAIN,POST PRANDIAL SP [id number] 06/27/2015 15:34:00 015 17:01:00 SP DIS Emergency GIGI MILES APRN [facility] ER BACK PAIN SP [id number] 03/24/2015 20:35:00 015 00:25:00 SP DIS Emergency YULIANA PADILLA, GABE Monroy [facility] ER VOMITING,POSS FEVER SP [id number] 01/09/2015 18:18:00 18:39:00 SP DIS Emergency GIGI MILES APRN [facility] ER WOUND CHECK SP [id number] 2015 10:25:00 11:24:00 SP DIS Emergency GIGI MILES APRN [facility] ER POSS SPIDER BITE/ABSCESS SP [id number] 12/25/2014 08:00:00 23:59:59 SP CLS Preadmit SHIV ROWLAND DO [facility] CARD SEE ORDER SP [id number] 12/22/2014 11:43:00 23:59:59 SP CLS Outpatient SHIV ROWLAND DO [facility] CARD NAUSEA FATIGUE SP [id number] 09/21/2014 13:26:00 015 14:32:00 SP DIS Emergency ALETHEA SNOW [facility] ER BACK PAIN SP [id number] 11/18/2013 21:43:00 014 22:32:00 SP DIS Emergency ALETHEA SNOW [facility] ER R FOOT PAIN SP [id number] 02/09/2012 21:45:00 SP Registration SP [id number] 05/04/2011 18:00:00 SP Registration SP [id number] 08/06/2010 23:16:00 SP Registration SP [id number] 05/23/2010 17:30:00 SP Registration SP
== END 2019-06-20 20:14 | disposition home or self-care (01) ==
LOC: EDUNIT# 18:59 → ER 19:01
DX: L02.412 Cutaneous abscess of left axilla (principal); G43.909 Migraine, unspecified, not intractable, without status migrainosus; K21.9 Gastro-esophageal reflux disease without esophagitis; Z88.5 Allergy status to narcotic agent; Z90.49 Acquired absence of other specified parts of digestive tract; Z82.49 Family history of ischemic heart disease and other diseases of the circulatory system
CPT/HCPCS: 10060; 87070; 87205

== ENCOUNTER 2019-07-16 08:32 | Emergency (ER) | payer MEDICAID ==
[~2019-07-16] VITALS: Ht 175.2 cm; Wt 107.2 kg
[~2019-07-16 08:32] MED LIST changes: +CHLO473M MM; +CLIN300C11 PO; +ESCI20TA45; +HYDR-4226 PO; -NFCHLORHGL MM; +PANT40TA3
[2019-07-16] MEDS ORDERED: OXYMETAZOLINE (AFRIN) 0.05% NA 15 ML BTL STA (09:07)
[2019-07-16] MEDS ORDERED: DEXAMETHASONE 10 MG/ML (DECADRON) 1 ML VIAL IM ONE (09:45)
--- NOTE | 2019-07-16 09:47 | ED EENT ---
History of Present Illness General Chief Complaint: Foreign Body Stated Complaint: FOREIGN OBJECT IN NOSE Nursing Triage Note: Pt reports waking up this morning and feeling as if there is something in the L nare. Pt reports feeling periodic movement in L nare. Source: patient Exam Limitations: no limitations History of Present Illness Date Seen by Provider: Jul 16, 2019 Time Seen by Provider: 09:02 Initial Comments Here with report of feeling like there is something in her nose on the left side. She woke up this way this morning. Admits to being congested and having allergies. She states it's been worse over the past few days. She has not tried anything for decongestant. Timing/Duration: abrupt Severity: moderate Location: nose Prearrival Treatment: no prearrival treatment Associated Symptoms: No cough, No ear drainage, No facial pain/swelling, No fever; nasal congestion/drainage Allergies and Home Medications Allergies Coded Allergies: codeine (Verified Adverse Reaction, Mild, HYPERSENSITIVE, HYPERACTIVITY, 02/13/19) PATIENT DENIES ALLERGY TO CODEINE Home Medications Clindamycin HCl 300 Mg Capsule, 300 MG PO TID Prescribed by: GIGI MILES on 06/20/192006 Hydrocodone/Acetaminophen 1 Each Tablet, 1 TAB PO Q6H Prescribed by: GIGI MILES on 06/20/192006 Patient Home Medication List Home Medication List Reviewed: Yes Review of Systems Review of Systems Constitutional: see HPI; No chills, No fever Nose: see HPI, congestion; denies epistaxis; clear discharge Mouth: no symptoms reported Throat: no symptoms reported Respiratory: cough; No short of breath, No wheezing Cardiovascular: no symptoms reported Skin: no symptoms reported Past Tyqghwq-Iwiaib-Fyveay Hx Past Med/Social Hx: Reviewed Nursing Past Med/Soc Hx Patient Social History Alcohol Use: Occasionally Uses Recreational Drug Use: No 2nd Hand Smoke Exposure: No Recent Foreign Travel: No Contact w/Someone Who Travel: No Recent Infectious Disease Expo: No Recent Hopitalizations: No Seasonal Allergies Seasonal Allergies: No Past Medical History Surgeries: Yes Appendectomy, Gallbladder Respiratory: No Cardiac: No Neurological: Yes Headaches /Migraines 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 0.0oz. 111.455330tb; 34.00 BMI Method:Stated General Appearance: WD/WN, no apparent distress Nose: other (bilateral moderate pressure with erythema and clear rhinorrhea. Left is greater than right. No obvious foreign body.) Mouth/Throat: No mandibular swelling; other (pharyngeal erythema with cobblestoning appearance) Neck: full range of motion, supple Cardiovascular: regular rate, rhythm Respiratory: lungs clear, normal breath sounds Neurologic/Psychiatric: alert, oriented x 3 Progress/Results/Core Measures Results/Orders My Orders Orders - ODILIA GENTILE MD Oxymetazoline 0.05% Nasal Harvest (Afrin 0. (07/16/19 09:07) Dexamethasone Injection (Decadron Inject (07/16/19 09:45) Vital Signs/I&O 07/16/19 08:40 Temp 36.4 Pulse 84 Resp 20 B/P (MAP) 125/88 (100) Pulse Ox 100 O2 Delivery Room Air Blood Pressure Mean: 100 POS Progress Progress Note : Progress Note Seen and evaluated. The nasal spray 2-3 sprays to each nostril. Monitor patient. 0935: She is better with much better clearance. She is complaining of drainage. She states that she's had quite a bit recently. I believe this is related to upper respiratory inflammation. Decadron 10 mg IM given. We will try that with continued Afrin nasal spray outpatient incision is better. Instructed on follow- up. Discharged home with return precautions. Patient verbalize understanding instructions and agreement with plan. Departure Impression Primary Impression: Viral upper respiratory illness Additional Impression: Nasal congestion Disposition: 01 HOME, SELF-CARE Condition: Improved Departure-Patient Inst. Decision time for Depature: 09:47 Referrals: VANDANA MIRZA DO (PCP/Family) Primary Care Physician Patient Instructions: Viral Upper Respiratory Infection, Adult (DC) Add. Discharge Instructions: All discharge instructions reviewed with patient and/or family. Voiced understanding. You may take Tylenol/acetaminophen 1000 mg every 8 hours as needed for fever or pain. You may take ibuprofen 800 mg every 8 hours as needed for fever or pain. You may use Afrin nasal spray or the generic, 12 hour relief, 2 sprays to each nostril twice daily for 3 days only and then stop. Do not use more than 3 days. Follow-up with your Dr. in a few days for recheck. Drink plenty of fluids. Return for worse pain, fever, vomiting, weakness, breathing problems or other concerns as needed. ODILIA GENTILE MD Jul 16, 2019 09:47 POS
[2019-07-16 10:03] VITALS: BP 125/88
== END 2019-07-16 10:06 | disposition home or self-care (01) ==
LOC: EDUNIT# 08:32 → ER 08:33
DX: J06.9 Acute upper respiratory infection, unspecified (principal); G43.909 Migraine, unspecified, not intractable, without status migrainosus; K21.9 Gastro-esophageal reflux disease without esophagitis; Z88.5 Allergy status to narcotic agent; Z90.49 Acquired absence of other specified parts of digestive tract; Z82.49 Family history of ischemic heart disease and other diseases of the circulatory system
CPT/HCPCS: 99282

== ENCOUNTER 2019-07-24 19:41 | Emergency (ER) | payer MEDICAID ==
[~2019-07-24] VITALS: Ht 177 cm; Wt 109.1 kg
[~2019-07-24 19:41] MED LIST changes: -CHLO473M MM; +NFCHLORHGL MM
--- NOTE | 2019-07-24 20:40 | Diagnostic Imaging Report ---
INDICATION: Left thumb injury 3 views of the left thumb show no fracture, dislocation or other acute abnormalities. IMPRESSION: Negative left thumb. Remainder of the hand is unremarkable as well. Dictated by: Dictated on workstation # [id number]
--- NOTE | 2019-07-24 21:03 | ED Upper Extremity ---
General Chief Complaint: Upper Extremity Stated Complaint: THUMB PAIN Nursing Triage Note: Pt ambulates to triage with c/o left thumb pain that started yesterday. Pt states she was playing with dog and he wqas "tugging o nit". Pt thumb mildly swollen on arrival. Nursing Sepsis Screen: No Definite Risk Source: patient Exam Limitations: no limitations History of Present Illness Date Seen by Provider: Jul 24, 2019 Time Seen by Provider: 20:20 Initial Comments 24-year-old female who presents to the emergency room with complaints of left thumb pain that started yesterday. She reports she was walking her dog and the leash became wrapped around her thumb in the dog tugged on it causing a popping sensation. Mild swelling to her thumb. No deformity Onset: yesterday Pain/Injury Location: left thumb Modifying Factors: Worse With Movement Allergies and Home Medications Allergies Coded Allergies: codeine (Verified Adverse Reaction, Mild, HYPERSENSITIVE, HYPERACTIVITY, 02/13/19) PATIENT DENIES ALLERGY TO CODEINE Home Medications Clindamycin HCl 300 Mg Capsule, 300 MG PO TID Prescribed by: GIGI MILES on 06/20/192006 Hydrocodone/Acetaminophen 1 Each Tablet, 1 TAB PO Q6H Prescribed by: GIGI MILES on 06/20/192006 Patient Home Medication List Home Medication List Reviewed: Yes Review of Systems Constitutional: see HPI; No chills, No fever Musculoskeletal: see HPI, joint pain (left thumb) All Other Systems Reviewed Negative Unless Noted: Yes Past Udupfyn-Tvxhgc-Sompgt Hx Past Med/Social Hx: Reviewed Nursing Past Med/Soc Hx Patient Social History 2nd Hand Smoke Exposure: No Recent Foreign Travel: No Contact w/Someone Who Travel: No Recent Infectious Disease Expo: No Recent Hopitalizations: No Seasonal Allergies Seasonal Allergies: No Past Medical History Surgeries: Yes Appendectomy, Gallbladder Respiratory: No Cardiac: No Neurological: Yes Headaches /Migraines 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 0.0oz. 111.139762tw; 34.00 BMI Method:Stated General Appearance: WD/WN, no apparent distress Cardiovascular: normal peripheral pulses, regular rate, rhythm, no edema, no gallop, no JVD, no murmur Respiratory: chest non-tender, lungs clear, normal breath sounds, no respiratory distress, no accessory muscle use Hand: Left, swelling (thumb swelling) Neurologic/Tendon: normal sensation, normal motor functions, normal tendon functions, responds to pain, no evidence tendon injury Neurologic/Psychiatric: alert, normal mood/affect, oriented x 3 Skin: normal color, warm/dry Progress/Results/Core Measures Results/Orders My Orders Vital Signs/I&O Blood Pressure Mean: 101 POS Departure Impression Primary Impression: Sprain of left thumb Disposition: 01 HOME, SELF-CARE Condition: Stable/Unchanged Departure-Patient Inst. Decision time for Depature: 21:03 Referrals: VANDANA MIRZA DO (PCP/Family) Primary Care Physician Patient Instructions: Sprained Thumb Add. Discharge Instructions: Ice to the sore areas at 20 minute intervals. You may use ibuprofen and Tylenol as directed by the bottle for pain relief. Return back to the emergency room for worsening symptoms or concerns as needed. All discharge instructions reviewed with patient and/or family. Voiced understanding. ALLISON HUMPHREY Jul 24, 2019 21:03 POS
[2019-07-24 21:12] VITALS: BP 132/86
--- OUTSIDE RECORDS SUMMARY | 2019-08-20 02:35 | XMS REPORT | Continuity of Care Document ---
Author Organization Unknown Address Unknown Phone Unavailable Allergies Active Description Code Type Severity Reaction Onset Reported/Identified Relationship to Patient Clinical Status Yes CODEINE SULFATE U NKNOWN UNKNOWN Yes codeine [id number] Drug Allergy Mild HYPERSENSITIVE, 02/13/2019 Medications There is no data. Problems Date Dx Coded Attending Type Code Diagnosis Diagnosed By 05/23/2010 Ot 465.9 05/23/2010 Ot 786.2 08/07/2010 Ot 478.19 08/07/2010 Ot 786.2 04/07/2011 ARJUN PADILLA, RANDELL V65. 11 NEW MOMMY VISIT 05/06/2011 Ot 287.5 THRO MBOCYTOPENIA NOS 05/06/2011 Ot 309.0 ADJU STMENT DISORDER WITH DEPRESSED MOOD 05/06/2011 Ot 648.41 MEN SOTERO DISORDER- DELIVER 05/06/2011 Ot 649.31 COA GULATION DEFECTS COMP PREG/CHILDBIRTH 05/06/2011 Ot 663.31 COR D ENTANGLE NEC-DELIV 05/06/2011 Ot 664.11 DEL W 2 DEG LACERAT-DEL 05/06/2011 Ot V06.4 [id number] 05/06/2011 Ot V27.0 DELI ETELVINA-SINGLE LIVEBORN 02/10/2012 Ot 780.52 INS OMNIA, UNSPECIFIED 02/10/2012 Ot 780.59 SLE EP DISTURBANCES NEC 02/10/2012 Ot 784.0 HEAD ACHE 11/18/2013 ALETHEA SNOW Ot 845.10 SPRAIN OF FOOT NOS 11/18/2013 ALETHEA SNOW Ot 959.7 LOWER LEG INJURY NOS 11/18/2013 ALETHEA SNOW Ot E000.8 OTHER EXTERNAL CAUSE STATUS 11/18/2013 ALETHEA SNOW Ot E001.0 ACTIVITIES INVOLVING WALKING, MARCHING A 11/18/2013 ALETHEA SNOW Ot E849.[address] NEC 11/18/2013 ALETHEA SNOW Ot E883.9 FALL INTO OTHER HOLE 09/21/2014 SONAM HAMMOND ALETHEA L Ot 724.2 LUMBAGO 09/21/2014 ALETHEA SNOW Ot 847.0 SPRAIN OF NECK 09/21/2014 ALETHEA SNOW Ot E000.8 OTHER EXTERNAL CAUSE STATUS 09/21/2014 SONAM HAMMOND ALETHEA L Ot E849.0 ACCIDENT IN HOME 09/21/2014 SONAM HAMMOND ALETHEA L Ot E927.0 OVEREXERTION FROM SUDDEN STRENUOUS MOVEM 2015 YUKI MARTINEZ SHIV S Ot 780.79 2015 MANISHGITA MARTINEZ SHIV S Ot 787.02 2015 GIGI MILES CLIMATOLOGIST Ot 682 .5 CELLULITIS OF BUTTOCK 2015 GIGI MILES CLIMATOLOGIST Ot 782 .2 LOCAL SUPRFICIAL SWELLNG 2015 GIGI MILES CLIMATOLOGIST Ot V12.04 PERSONAL HIST OF METHICILLIN RESISTANT S 2015 MANISHGITA SHIV MARTINEZ S Ot 780.79 2015 YUKI MARTINEZ SHIV S Ot 787.02 01/09/2015 GIGI MILES CLIMATOLOGIST Ot 041.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 01/09/2015 GIGI MILES CLIMATOLOGIST Ot 682 .5 CELLULITIS OF BUTTOCK 03/24/2015 YUKI MARTINEZ SHIV S Ot 780.79 03/24/2015 MANISHGITA DO SHIV S Ot 787.02 03/25/2015 YULIANA PADILLA, GABE Monroy Ot 787.01 NAUSEA WITH VOMITING 03/25/2015 YULIANA PADILLA, GABE Monroy Ot 789.09 ABDOMINAL PAIN, OTHER SPECIFIED SITE 03/25/2015 MANISHGITA DO SHIV S Ot 780.79 03/25/2015 PAGITA DO SHIV S Ot 787.02 06/27/2015 GIGI MILES CLIMATOLOGIST Ot M54 .6 PAIN IN THORACIC SPINE 03/28/2016 SHIV ROWLAND DO S Ot 780.79 OTH MALAISE FATIGUE 03/28/2016 YUKI MARTINEZ SHIV S Ot 787.02 NAUSEA ALONE 03/29/2016 ISAIAH MARS DO Ot R10.13 EPIGASTRIC PAIN 03/30/2016 ISAIAH MARS DO Ot R10.13 EPIGASTRIC PAIN 04/04/2016 W 787.99 OT ER SYMPTOMS INVOLVING DIGESTIVE SYSTEM 04/04/2016 W K21.9 CRISTIAN RO-ESOPHAGEAL REFLUX DISEASE WITHOUT ESOPHAGITIS 04/12/2016 ISAIAH MARS DO Ot R10.13 EPIGASTRIC PAIN 12/05/2017 W 465.9 ACUT E UPPER RESPIRATORY INFECTIONS OF UNSPECIFIED SITE 12/05/2017 W J06.9 ACUT E UPPER RESPIRATORY INFECTION, UNSPECIFIED 01/02/2019 W 787.0 NAUS EA AND VOMITING 01/02/2019 W R11.2 NAUS EA WITH VOMITING, UNSPECIFIED 02/12/2019 ALMA LIN MD Ot Z01.81 8 ENCOUNTER FOR OTHER PREPROCEDURAL EXAMIN 02/13/2019 SHIV ROWLAND DO Ot 780.79 OT MALAISE FATIGUE 02/13/2019 SHIV ROWLAND DO Ot 787.02 NAUSEA ALONE 02/13/2019 ISAIAH MARS DO Ot R10.13 EPIGASTRIC PAIN 02/13/2019 ALMA LIN MD Ot K21.0 GASTRO-ESOPHAGEAL REFLUX DISEASE WITH ES 02/13/2019 ALMA LIN MD Ot K29.70 GASTRITIS, UNSPECIFIED, WITHOUT BLEEDING 02/13/2019 ALMA LIN MD Ot K44.9 DIAPHRAGMATIC HERNIA WITHOUT OBSTRUCTION 02/15/2019 ALMA LIN MD Ot K21.0 GASTRO-ESOPHAGEAL REFLUX DISEASE WITH ES 02/15/2019 ALMA LIN MD Ot K29.70 GASTRITIS, UNSPECIFIED, WITHOUT BLEEDING 02/15/2019 ALMA LIN MD Ot K44.9 DIAPHRAGMATIC HERNIA WITHOUT OBSTRUCTION 02/19/2019 SHIV ROWLAND DO Ot 780.79 OT MALAISE FATIGUE 02/19/2019 SHIV ROWLAND DO Ot 787.02 NAUSEA ALONE 02/19/2019 ISAIAH MARS DO Ot R10.13 EPIGASTRIC PAIN 02/19/2019 MARLI BUTTS MD Ot G43.909 MIGRAINE, UNSP, NOT INTRACTABLE, WITHOUT 02/19/2019 BECKIE PADILLA, MARLI Bermudez Ot K05. 00 ACUTE GINGIVITIS, PLAQUE INDUCED 02/19/2019 MARLI BUTTS MD Ot K21. 9 GASTRO-ESOPHAGEAL REFLUX DISEASE WITHOUT 02/19/2019 MARLI BUTTS MD Ot L25. 9 UNSPECIFIED CONTACT DERMATITIS, UNSPECIF 02/19/2019 MARLI BUTTS MD Ot R22. 31 LOCALIZED SWELLING, MASS AND LUMP, RIGHT 02/19/2019 MRALI BUTTS MD Ot Z82. 49 FAMILY HX OF ISCHEM HEART DIS AND OTH DI 02/19/2019 MARLI BUTTS MD Ot Z88. 5 ALLERGY STATUS TO NARCOTIC AGENT STATUS 02/19/2019 MARLI BUTTS MD Ot Z90. 49 ACQUIRED ABSENCE OF OTHER SPECIFIED PART 02/19/2019 PAGITA MARTINEZ SHIV S Ot 780.79 OTH MALAISE FATIGUE 02/19/2019 PAGITA MARTINEZ SHIV S Ot 787.02 NAUSEA ALONE 02/19/2019 ISAIAH MARS DO Ot R10.13 EPIGASTRIC PAIN 02/24/2019 MARLI BUTTS MD Ot G43.909 MIGRAINE, UNSP, NOT INTRACTABLE, WITHOUT 02/24/2019 MARLI BUTTS MD Ot K05. 00 ACUTE GINGIVITIS, PLAQUE INDUCED 02/24/2019 MARLI BUTTS MD Ot K21. 9 GASTRO-ESOPHAGEAL REFLUX DISEASE WITHOUT 02/24/2019 MARLI BUTTS MD Ot L25. 9 UNSPECIFIED CONTACT DERMATITIS, UNSPECIF 02/24/2019 MARLI BUTTS MD Ot R22. 31 LOCALIZED SWELLING, MASS AND LUMP, RIGHT 02/24/2019 MARLI BUTTS MD Ot Z82. 49 FAMILY HX OF ISCHEM HEART DIS AND OTH DI 02/24/2019 MARLI BUTTS MD Ot Z88. 5 ALLERGY STATUS TO NARCOTIC AGENT STATUS 02/24/2019 MARLI BUTTS MD Ot Z90. 49 ACQUIRED ABSENCE OF OTHER SPECIFIED PART 04/23/2019 DALE, LEANN PRO SHOP ATTENDANT Ot G43.909 MIGRAINE, UNSP, NOT INTRACTABLE, WITHOUT 04/23/2019 DALE, LEANN PRO SHOP ATTENDANT Ot H65.91 UNSPECIFIED NONSUPPURATIVE OTITIS MEDIA, 04/23/2019 LEANN HUNTERP Ot H92.01 OTALGIA, RIGHT EAR 04/23/2019 LEANN HUNTER Ot J32.9 CHRONIC SINUSITIS, UNSPECIFIED 04/23/2019 DALELEANN WillisP Ot K21.9 GASTRO-ESOPHAGEAL REFLUX DISEASE WITHOUT 04/23/2019 DALELEANN Willis PRO SHOP ATTENDANT Ot Z88.5 ALLERGY STATUS TO NARCOTIC AGENT STATUS 04/23/2019 LEANN HUNTER Ot Z90.49 ACQUIRED ABSENCE OF OTHER SPECIFIED PART 06/20/2019 SHIV ROWLAND DO Ot 780.79 OTH MALAISE FATIGUE 06/20/2019 SHIV ROWLAND DO Ot 787.02 NAUSEA ALONE 06/20/2019 ISAIAH MARS DO Ot R10.13 EPIGASTRIC PAIN 06/24/2019 GIGI MILES APRN Ot G43.909 MIGRAINE, UNSP, NOT INTRACTABLE, WITHOUT 06/24/2019 GIGI MILES APRN Ot K21 .9 GASTRO-ESOPHAGEAL REFLUX DISEASE WITHOUT 06/24/2019 GIGI MILES APRN Ot L02.412 CUTANEOUS ABSCESS OF LEFT AXILLA 06/24/2019 GIGI MILES APRN Ot Z82.49 FAMILY HX OF ISCHEM HEART DIS AND OTH DI 06/24/2019 GIGI MILES APRN Ot Z88 .5 ALLERGY STATUS TO NARCOTIC AGENT STATUS 06/24/2019 GIGI MILES APRN Ot Z90.49 ACQUIRED ABSENCE OF OTHER SPECIFIED PART 07/16/2019 ODILIA GENTILE MD Ot G43.909 MIGRAINE, UNSP, NOT INTRACTABLE, WITHOUT 07/16/2019 ODILIA GENTILE MD Ot J06.9 ACUTE UPPER RESPIRATORY INFECTION, UNSPE 07/16/2019 ODILIA GENTILE MD Ot K21.9 GASTRO-ESOPHAGEAL REFLUX DISEASE WITHOUT 07/16/2019 ODILIA GENTILE MD Ot R09.81 NASAL CONGESTION 07/16/2019 ODILIA GENTILE MD Ot Z82.49 FAMILY HX OF ISCHEM HEART DIS AND OTH DI 07/16/2019 ODILIA GENTILE MD Ot Z88.5 ALLERGY STATUS TO NARCOTIC AGENT STATUS 07/16/2019 ODILIA GENTILE MD Ot Z90.49 ACQUIRED ABSENCE OF OTHER SPECIFIED PART 07/18/2019 ODILIA GENTILE MD Ot G43.909 MIGRAINE, UNSP, NOT INTRACTABLE, WITHOUT 07/18/2019 ODILIA GENTILE MD Ot J06.9 ACUTE UPPER RESPIRATORY INFECTION, UNSPE 07/18/2019 ODILIA GENTILE MD Ot K21.9 GASTRO-ESOPHAGEAL REFLUX DISEASE WITHOUT 07/18/2019 ODILIA GENTILE MD Ot R09.81 NASAL CONGESTION 07/18/2019 ODILIA GENTILE MD Ot Z82.49 FAMILY HX OF ISCHEM HEART DIS AND OTH DI 07/18/2019 ODILIA GENTILE MD Ot Z88.5 ALLERGY STATUS TO NARCOTIC AGENT STATUS 07/18/2019 ODILIA GENTILE MD Ot Z90.49 ACQUIRED ABSENCE OF OTHER SPECIFIED PART 07/24/2019 BERNOT ALLISON Ot G43.909 MIGRAINE, UNSP, NOT INTRACTABLE, WITHOUT 07/24/2019 BERNOT, ALLISON Ot K21.9 GASTRO-ESOPHAGEAL REFLUX DISEASE WITHOUT 07/24/2019 BERNOT, ALLISON Ot M79.645 PAIN IN LEFT FINGER(S) 07/24/2019 BERNOT, ALLISON Ot S63.602A UNSPECIFIED SPRAIN OF LEFT THUMB, INITIA 07/24/2019 BERNOT, ALLISON Ot W23.1XXA CAUGHT, CRUSH, JAMMED, OR PINCHED BETW S 07/24/2019 BERNOT, ALLISON Ot Z82.49 FAMILY HX OF ISCHEM HEART DIS AND OTH DI 07/24/2019 BERNOT, ALLISON Ot Z88.5 ALLERGY STATUS TO NARCOTIC AGENT STATUS 07/24/2019 BERNOT, ALLISON Ot Z90.49 ACQUIRED ABSENCE OF OTHER SPECIFIED PART 07/29/2019 BERNOT, ALLISON Ot G43.909 MIGRAINE, UNSP, NOT INTRACTABLE, WITHOUT 07/29/2019 BERNOT, ALLISON Ot K21.9 GASTRO-ESOPHAGEAL REFLUX DISEASE WITHOUT 07/29/2019 BERNOT, ALLISON Ot M79.645 PAIN IN LEFT FINGER(S) 07/29/2019 BERNOT, ALLISON Ot S63.602A UNSPECIFIED SPRAIN OF LEFT THUMB, INITIA 07/29/2019 BERNOT, ALLISON Ot W23.1XXA CAUGHT, CRUSH, JAMMED, OR PINCHED BETW S 07/29/2019 BERNOT, ALLISON Ot Z82.49 FAMILY HX OF ISCHEM HEART DIS AND OTH DI 07/29/2019 BERNOT, ALLISON Ot Z88.5 ALLERGY STATUS TO NARCOTIC AGENT STATUS 07/29/2019 BERNOT, ALLISON Ot Z90.49 ACQUIRED ABSENCE OF OTHER SPECIFIED PART Procedures Code Description Performed By Per kay On 75.69 05/05/2011 Results Test Result Range [...] - 01/02/19 09:34 Lipase 9 U/L 7-59 LIPID PANEL - 05/07/19 09:34 CHOLESTEROL, TOTAL 167 mg/dL <200 HDL CHOLESTEROL 42 mg/dL >50 TRIGLYCERIDES 83 mg/dL <150 LDL-CHOLESTEROL 108 mg/dL (calc) NRG CHOL/HDLC RATIO 4.0 (calc) <5.0 NON HDL CHOLESTEROL 125 mg/dL (calc) <13 0 CMP - 05/07/19 09:34 GLUCOSE 82 mg/dL 65-99 UREA NITROGEN (BUN) 16 mg/dL 7-25 CREATININE 1.02 mg/dL 0.50-1.10 eGFR NON-AFR. PUERTO RICAN 76 mL/min/1.73m2 > OR = 60 eGFR 89 mL/min/1.73m2 > OR = 60 BUN/CREATININE RATIO NOT APPLICABLE (calc) 6-22 SODIUM 140 mmol/L 135-146 POTASSIUM 4.5 mmol/L 3.5-5.3 CHLORIDE 107 mmol/L 98-110 CARBON DIOXIDE 24 mmol/L 20-32 CALCIUM 9.7 mg/dL 8.6-10.2 PROTEIN, TOTAL 7.5 g/dL 6.1-8.1 ALBUMIN 4.5 g/dL 3.6-5.1 GLOBULIN 3.0 g/dL (calc) 1.9-3.7 ALBUMIN/GLOBULIN RATIO 1.5 (calc) 1.0-2. 5 BILIRUBIN, TOTAL 0.5 mg/dL 0.2-1.2 ALKALINE PHOSPHATASE 83 U/L 33-115 AST 17 U/L 10-30 ALT 26 U/L 6-29 CBC - 05/07/19 09:34 WHITE BLOOD CELL COUNT 10.8 Thousand/uL 3.8-10.8 RED BLOOD CELL COUNT 5.34 Million/uL 3.8 0-5.10 HEMOGLOBIN 15.5 g/dL 11.7-15.5 HEMATOCRIT 49.2 % 35.0-45.0 MCV 92.1 fL 80.0-100.0 MCH 29.0 pg 27.0-33.0 MCHC 31.5 g/dL 32.0-36.0 RDW 12.1 % 11.0-15.0 PLATELET COUNT 195 Thousand/uL 140-400 MPV 12.8 fL 7.5-12.5 ABSOLUTE NEUTROPHILS 7538 cells/uL 1500- 7800 ABSOLUTE LYMPHOCYTES 2452 cells/uL 850-3 900 ABSOLUTE MONOCYTES 486 cells/uL 200-950 ABSOLUTE EOSINOPHILS 259 cells/uL 15-500 ABSOLUTE BASOPHILS 65 cells/uL 0-200 NEUTROPHILS 69.8 % NRG LYMPHOCYTES 22.7 % NRG MONOCYTES 4.5 % NRG EOSINOPHILS 2.4 % NRG BASOPHILS 0.6 % NRG THYROID ANALYZER - 05/07/19 09:34 TSH 1.86 mIU/L NRG VITAMIN D, 25-H - 05/07/19 09:34 VITAMIN D,25-OH,TOTAL,IA 31 ng/mL 30-10 0 Gram stain microscopy - 06/20/19 20:03 Gram stain microscopy No bacteria seen NRG Bacteria identification in wound by cult ure - 06/20/19 20:03 Bacteria identification in wound by culture [id number] NRG FREE TEXT EXTERNAL NO SUSCEPTIBILITIES SET UP NRG QUANTITY OF GROWTH SMALL AMOUNT NRG Encounters ACCT No. Visit Date/Time Discharge Status Pt. Type Provider Facility Loc./Unit Complaint [id number] 04/09/2019 08:56:00 04/09/2019 23:59: 00 DIS Outpatient Shiv Rowland [id number] 01/02/2019 09:29:00 01/02/2019 23:59: 00 DIS Outpatient Shiv Rowland [id number] 01/01/2017 15:11:00 01/01/2017 23:59: 00 DIS Outpatient Shiv Rowland [id number] 01/02/2019 08:42:00 Document Registration [id number] 12/05/2017 13:04:00 Document Registration [id number] 04/04/2016 10:13:00 Document Registration [id number] 05/07/2019 09:00:00 Document Registration [id number] 04/07/2011 13:39:00 04/07/2011 23:59: 59 CLS Outpatient ARJUN PADILLA, RANDELL [id number] 07/24/2019 19:43:00 21:11:00 DIS Emergency ALLISON HUMPHREY [facility] ER THUMB PAIN [id number] 07/16/2019 08:33:00 10:06:00 DIS Emergency ODILIA GENTILE MD [facility] ER FOREIGN OBJECT IN NOSE [id number] 06/20/2019 19:01:00 20:14:00 DIS Outpatient GIGI MILES APRN [facility] ER LT UNDERARM SWELLING,RE DNESS [id number] 04/23/2019 18:32:00 19:59:00 DIS Emergency LEANN HUNTER PRO SHOP ATTENDANT [facility] ER SINUS PRESSURE [id number] 02/19/2019 18:23:00 19:23:00 DIS Emergency MARLI BUTTS MD [facility] ER R ARM BUMPS [id number] 02/13/2019 10:55:00 14:45:00 DIS Outpatient ALMA LIN MD [facility] ENDO ABD PAIN/N V/REFLUX [id number] 02/12/2019 10:49:00 019 11:58:00 DIS Outpatient ALMA LIN MD [facility] PREOP EGD [id number] 03/28/2016 09:45:00 016 23:59:59 CLS Outpatient JERADISAIAH OSCAR DO [facility] CARD EPIGASTRIC PAIN,POSTPRANDIAL PAIN [id number] 06/27/2015 15:34:00 015 17:01:00 DIS Emergency GIGI MILES APRN [facility] ER BACK PAIN [id number] 03/24/2015 20:35:00 015 00:25:00 DIS Emergency GABE BRIDGES MD [facility] ER VOMITING,POSS F EVER [id number] 01/09/2015 18:18:00 015 18:39:00 DIS Emergency GIGI MILES APRN [facility] ER WOUND CHECK [id number] 2015 10:25:00 015 11:24:00 DIS Emergency GIGI MILES APRN [facility] ER POSS SPIDER BITE/ABSCES S [id number] 12/25/2014 08:00:00 015 23:59:59 CLS Preadmit SHIV ROWLAND DO [facility] CARD SEE ORDER [id number] 12/22/2014 11:43:00 23:59:59 CLS Outpatient SHIV ROWLAND DO [facility] CARD NAUSEA FATIGUE [id number] 09/21/2014 13:26:00 015 14:32:00 DIS Emergency ALETHEA SNOW [facility] ER BACK PAIN [id number] 11/18/2013 21:43:00 014 22:32:00 DIS Emergency ALETHEA SNOW Via [facility] ER R FOOT PAIN [id number] 02/09/2012 21:45:00 Document Registration [id number] 05/04/2011 18:00:00 Document Registration [id number] 08/06/2010 23:16:00 Document Registration [id number] 05/23/2010 17:30:00 Document Registration
== END 2019-07-24 21:11 | disposition home or self-care (01) ==
LOC: EDUNIT# 19:41 → ER 19:43
DX: S63.602A Unspecified sprain of left thumb, initial encounter (principal); G43.909 Migraine, unspecified, not intractable, without status migrainosus; K21.9 Gastro-esophageal reflux disease without esophagitis; Z88.5 Allergy status to narcotic agent; Z90.49 Acquired absence of other specified parts of digestive tract; Z82.49 Family history of ischemic heart disease and other diseases of the circulatory system; W23.1XXA Caught, crushed, jammed, or pinched between stationary objects, initial encounter
CPT/HCPCS: 73140

== ENCOUNTER 2019-09-27 07:43 | Emergency (ER) | payer MEDICAID ==
[~2019-09-27] VITALS: Ht 175 cm; Wt 111.4 kg
--- NOTE | 2019-09-27 08:06 | ED Cough/URI ---
General Chief Complaint: Oral/Throat Problems Stated Complaint: SORE THROAT / COUGH Nursing Triage Note: ARRIVED VIA AMB TO ROOM 06 WITH COMPLAINTS OF SORE THROAT, EAR PAIN, FEVER. STATES SHE TOOK TYLENOL 1000MG AROUND 1130 LAST NIGHT. 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 LMP--3 YEARS AGO, HAS HAD MIRENA IUD IN PLACE FOR 3 YEARS, AND ALSO FOR 8 YEARS PRIOR TO THAT PCP: DR. MIRZA Allergies and Home Medications Allergies Coded Allergies: codeine (Verified Adverse Reaction, Mild, HYPERSENSITIVE, HYPERACTIVITY, 02/13/19) PATIENT DENIES ALLERGY TO CODEINE Patient Home Medication List Home Medication List Reviewed: Yes Review of Systems Review of Systems Constitutional: see HPI, chills, fever EENTM: see HPI, nose congestion, throat pain Respiratory: see HPI, cough; No short of breath, No wheezing Cardiovascular: no symptoms reported Gastrointestinal: no symptoms reported Genitourinary: no symptoms reported : No Musculoskeletal: no symptoms reported Skin: no symptoms reported Psychiatric/Neurological: No Symptoms Reported Hematologic/Lymphatic: No Symptoms Reported Immunological/Allergic: no symptoms reported Past [id number] Hx Past Med/Social Hx: Reviewed and Corrections made Patient Social History Alcohol Use: Rarely Uses Recreational Drug Use: No Smoking Status: Never a Smoker 2nd Hand Smoke Exposure: No Recent Foreign Travel: No Contact w/Someone Who Travel: No Recent Infectious Disease Expo: No Recent Hopitalizations: No Seasonal Allergies Seasonal Allergies: No Past Medical History Surgeries: Yes (EGD'S--LAST ONE 01/2019) Appendectomy, Gallbladder Respiratory: No Cardiac: No Neurological: Yes Headaches /Migraines : No Reproductive Disorders: No [employer]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 Genitourinary: No Gastrointestinal: Yes (N&V) Gastroesophageal Reflux, Esophagitis, Hiatal Hernia Musculoskeletal: No Endocrine: No HEENT: No Cancer: No Psychosocial: Yes Anxiety, Depression Integumentary: No Blood Disorders: No Adverse Reaction/Blood Tranf: No Family Medical History Diabetes, Hypertension, Stroke PSH: -LAP APPENDECTOMY 2012 -LAP CHOLECYSTECTOMY WITH EGD 2015 -EGD 01/2019--HIATAL HERNIA, REFLUX ESOPHAGITIS, GASTRITIS Physical Exam Vital Signs - First Documented 09/27/19 07:45 Temp 37.0 Pulse 99 Resp 16 B/P (MAP) 128/81 (97) Pulse Ox 100 O2 Delivery Room Air Capillary Refill : Less Than 3 Seconds Height: 5'9.00" Weight: 245lbs. 0.0oz. [id number]; 36.00 BMI Method:Stated General Appearance: WD/WN, no apparent distress, obese HEENT: PERRL/EOMI; No photophobia; pharyngeal erythema; No tonsillar exudate; other (TM'S INFLAMED,DULL, WITH EFFUSIONS; NASAL CONGESTION AND POST NASAL DRAINAGE. NO SINUS TENDERNESS) Neck: non-tender, full range of motion, supple, normal inspection; No lymphadenopathy (R), No lymphadenopathy (L) Respiratory: normal breath sounds, no respiratory distress, no accessory muscle use Cardiovascular: regular rate, rhythm, no murmur Gastrointestinal: non tender, soft Extremities: normal inspection, normal capillary refill Neurologic/Psychiatric: no motor/sensory deficits, alert, normal mood/affect, oriented x 3 Skin: normal color, warm/dry; No rash Progress/Results/Core Measures Suspected Sepsis Recent Fever Within 48 Hours: Yes Infection Criteria Present: Suspected New Infection New/Unexplained Altered Menta: No Sepsis Screen: Possible Severe Sepsis Risk SIRS Temperature: Pulse: 99 Respiratory Rate: 16 Blood Pressure 128 /81 Mean: 97 Results/Orders Lab Results Laboratory Tests Test 09/27/19 07:50 Range/Units Group A Streptococcus Screen NEGATIVE NEGATIVE Micro Results Microbiology 09/27/19 Influenza Types A,B Antigen (NATAN) - Final, Complete My Orders Orders - ELO DENNIS DO Rapid Strep A Screen (09/27/19 07:52) Influenza A And B Antigens (09/27/19 07:52) Vital Signs/I&O 09/27/19 07:45 Temp 37.0 Pulse 99 Resp 16 B/P (MAP) 128/81 (97) Pulse Ox 100 O2 Delivery Room Air Capillary Refill : Less Than 3 Seconds Blood Pressure Mean: 97 Departure Impression Primary Impression: Upper respiratory infection Additional Impression: Bilateral otitis media with effusion Disposition: 01 HOME, SELF-CARE Condition: Stable Departure-Patient Inst. Referrals: VANDANA MIRZA DO (PCP/Family) Primary Care Physician Patient Instructions: Bacterial Upper Respiratory Infection, Adult, Ear Infections (Otitis Media) (DC), Serous Otitis Media (DC), Cough, Runny Nose, and the Common Cold (DC) Add. Discharge Instructions: LOTS OF CLEAR LIQUIDS TYLENOL 1 GRAM / MOTRIN 800 MG 4 TIMES A DAY FOR PAIN OR FEVER FOLLOW UP WITH YOUR DR IN 3-4 DAYS IF NO BETTER All discharge instructions reviewed with patient and/or family. Voiced understanding. Scripts Triamcinolone Acetonide (Nasacort) 10.8 Ml [place] 2 SPRAY NSEACH BID, #1 SPRAY Prov: ELO DENNIS DO 09/27/19 Guaifenesin/Dextromethorphan (Mucinex Dm ER 1,200-60 mg Tab) 1 Each Tbmp.12hr 1 EACH PO BID for 10 Days, #20 EA Prov: ELO DENNIS DO 09/27/19 Loratadine/Pseudoephedrine (Claritin-D 12 Hour Tablet) 1 Each Tab.er.12h 1 EACH PO BID, #20 TAB Prov: ELO DENNIS DO 09/27/19 Azithromycin (Zithromax) 500 Mg Tablet 500 MG PO DAILY, #5 TAB FOR INFECTION Prov: ELO DENNIS DO 09/27/19 Work/School Note: Work Release Form Date Seen in the Emergency Department: Sep 27, 2019 Return to Work: Sep 30, 2019 ELO DENNIS DO Sep 27, 2019 08:06
[2019-09-27] MEDS ORDERED: AZIT500T PO (08:25)
[2019-09-27] MEDS ORDERED: TRIA10.8 NSEACH (08:25)
[2019-09-27] MEDS ORDERED: LORA1TAB59 PO (08:25)
[2019-09-27] MEDS ORDERED: GUAI1TBM19 PO (08:25)
[2019-09-27 08:31] VITALS: BP 128/81
== END 2019-09-27 08:31 | disposition home or self-care (01) ==
LOC: EDUNIT# 07:43 → ER 07:44
DX: J06.9 Acute upper respiratory infection, unspecified (principal); H65.93 Unspecified nonsuppurative otitis media, bilateral; Z88.5 Allergy status to narcotic agent; Z82.49 Family history of ischemic heart disease and other diseases of the circulatory system
CPT/HCPCS: 87430; 87804